=== PATIENT | female | born 1965 | race Caucasian/White ===

== ENCOUNTER 2016-07-17 16:46 | Emergency (ER) | payer MEDICAID ==
[~2016-07-17] VITALS: Ht 172.7 cm; Wt 65.0 kg
[2016-07-17 17:05] VITALS: BP 242/113; PULSE 99; RESP 18; TEMP 98.6; O2SAT 98
[2016-07-17] MEDS ORDERED: SODIUM CHLOR 0.9% 1000 ML INJ 1,000 ML IV SCH (17:11)
[2016-07-17 17:15] LABS: MEAN CORPUSCULAR HGB CONC 37.5 % (32.0-36.0)
[2016-07-17] MEDS ORDERED: METOCLOPRAMIDE HCL 10 MG/2 ML VIAL IV PUSH ONE (17:15)
[2016-07-17] MEDS ORDERED: SODIUM CHLORIDE 0.9% FLUSH 5 ML FLUSH IVF PRN (17:15)
[2016-07-17] MEDS ORDERED: BETH25TA2 PO (17:21)
[2016-07-17] MEDS ORDERED: REGL10TA5 PO (17:21)
[2016-07-17] MEDS ORDERED: CARA1TAB6 PO (17:21)
[2016-07-17 17:22] VITALS: RESP 20; O2SAT 96
--- NOTE | 2016-07-17 17:26 | PD ---
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 She also states she has been having diarrhea into her colostomy bag, has had to change the colostomy bag 3 times today. She denies any fevers. She currently is complaining of 8 out of 10 diffuse abdominal pain. She denies any fevers or other issues. She does not know any exacerbating or alleviating symptoms. Symptoms started yesterday. She has had similar symptoms in the past. Modifying Factors: None Associated Signs & Symptoms: Nausea, vomiting, diarrhea, abdominal pain Risk Factors: Gastroparesis history PFSH Past Medical History Diabetes: Yes Patient Takes Glucophage: No Gastrointestinal Disorders: Yes (GASTROPORESIS) Hypertension: Yes Neurologic: Yes (NEUROPATHY) ?: Not Menopausal: Yes Past Surgical History Section: Yes (X3) Other Surgery: Yes (COLOSTOMY, RT HIP TUMOR REMOVED) Social History Alcohol Use: No Tobacco Use: Yes (1PPD) Substance Use: No Allergies-Medications (Allergen,Severity, Reaction): Coded Allergies: Robaxin (Verified Allergy, Unknown, 07/17/16) Reported Meds & Prescriptions Reported Meds & Active Scripts Active Reported Reglan (Metoclopramide HCl) 10 Mg Tab 10 Mg PO QID Carafate (Sucralfate) 1 Gm Tab 1 Gm PO QID On empty stomach Bethanechol 25 Mg Tab 25 Mg PO DAILYAC Review of Systems Except as stated in HPI: all other systems reviewed are Neg Physical Exam Narrative GENERAL: Patient is a little age white female who is well-developed, awake, alert, oriented 3, in moderate distress, vomiting in the ER, tearful. SKIN: Warm and dry. HEAD: Atraumatic. Normocephalic. EYES: Pupils equal and round. No scleral icterus. No injection or drainage. ENT: No nasal bleeding or discharge. Mucous membranes pink and moist. NECK: Trachea midline. No JVD. CARDIOVASCULAR: Regular rate and rhythm. No murmur appreciated. RESPIRATORY: No accessory muscle use. Clear to auscultation. Breath sounds equal bilaterally. GASTROINTESTINAL: Abdomen soft, diffusely tender without guarding or rebound, nondistended. Colostomy intact with dark greenish bowel movement. Hepatic and splenic margins not palpable. MUSCULOSKELETAL: No obvious deformities. No clubbing. No cyanosis. No edema. NEUROLOGICAL: Awake and alert. No obvious cranial nerve deficits. Motor grossly within normal limits. Normal speech. PSYCHIATRIC: Appropriate mood and affect; insight and judgment normal. Data Data Last Documented VS Vital Signs Date Time Temp Pulse Resp B/P Pulse Ox O2 Delivery O2 Flow Rate FiO2 07/17/16 19:24 94 22 215/139 100 Room Air 07/17/16 17:05 98.6 Orders Complete Blood Count With Diff (07/17/16 17:11) Comprehensive Metabolic Panel (07/17/16 17:11) Lipase (07/17/16 17:11) Abdomen, Flat & Upright (07/17/16 ) Iv Access Insert/Monitor (07/17/16 17:11) Ecg Monitoring (07/17/16 17:11) Oximetry (07/17/16 17:11) Sodium Chlor 0.9% 1000 Ml Inj (Ns 1000 M (07/17/16 17:11) Sodium Chloride 0.9% Flush (Ns Flush) (07/17/16 17:15) Metoclopramide Inj (Reglan Inj) (07/17/16 17:15) Ct Abd/Pel W/O Iv Contrast (07/17/16 18:54) Hydromorphone Pf Inj (Dilaudid Pf Inj) (07/17/16 19:00) Labs Laboratory Tests Test 07/17/16 17:40 White Blood Count 15.0 TH/MM3 Red Blood Count 4.53 MIL/MM3 Hemoglobin 14.0 GM/DL Hematocrit 37.4 % Mean Corpuscular Volume 82.6 FL Mean Corpuscular Hemoglobin 31.0 PG Mean Corpuscular Hemoglobin 37.5 % Concent Red Cell Distribution Width 13.9 % Platelet Count 413 TH/MM3 Mean Platelet Volume 7.4 FL Neutrophils (%) (Auto) 81.7 % Lymphocytes (%) (Auto) 14.6 % Monocytes (%) (Auto) 3.0 % Eosinophils (%) (Auto) 0.1 % Basophils (%) (Auto) 0.6 % Neutrophils # (Auto) 12.3 TH/MM3 Lymphocytes # (Auto) 2.2 TH/MM3 Monocytes # (Auto) 0.5 TH/MM3 Eosinophils # (Auto) 0.0 TH/MM3 Basophils # (Auto) 0.1 TH/MM3 CBC Comment AUTO DIFF Differential Comment AUTO DIFF CONFIRMED Platelet Estimate HIGH Platelet Morphology Comment NORMAL Acanthocytes OCC Sodium Level 134 MEQ/L Potassium Level 3.6 MEQ/L Chloride Level 93 MEQ/L Carbon Dioxide Level 30.4 MEQ/L Anion Gap 11 MEQ/L Blood Urea Nitrogen 41 MG/DL Creatinine 1.85 MG/DL Estimat Glomerular Filtration 29 ML/MIN Rate Random Glucose 262 MG/DL Calcium Level 9.0 MG/DL Total Bilirubin 0.3 MG/DL Aspartate Amino Transf 14 U/L (AST/SGOT) Alanine Aminotransferase 16 U/L (ALT/SGPT) Alkaline Phosphatase 72 U/L Total Protein 7.1 GM/DL Albumin 3.1 GM/DL Lipase 277 U/L [facility] Medical Decision Making Medical Screen Exam Complete: Yes Emergency Medical Condition: Yes Medical Record Reviewed: Yes Interpretation(s) Laboratory Tests Test 07/17/16 17:40 White Blood Count 15.0 TH/MM3 (4.0-11.0) Mean Corpuscular Hemoglobin 37.5 % Concent (32.0-36.0) Neutrophils (%) (Auto) 81.7 % (16.0-70.0) Neutrophils # (Auto) 12.3 TH/MM3 (1.8-7.7) Sodium Level 134 MEQ/L (136-145) Chloride Level 93 MEQ/L (98-107) Blood Urea Nitrogen 41 MG/DL (7-18) Creatinine 1.85 MG/DL (0.50-1.00) Estimat Glomerular Filtration 29 ML/MIN (>89) Rate Random Glucose 262 MG/DL (74-106) Aspartate Amino Transf 14 U/L (15-37) (AST/SGOT) Albumin 3.1 GM/DL (3.4-5.0) Differential Diagnosis Nausea, vomiting, diarrhea, abdominal paingastroparesis versus obstruction versus dehydration versus metabolic issues versus gastroenteritis Narrative Course X-ray initially did not reveal any signs of significant obstruction. Patient is vomiting multiple times in the ER and was given Reglan. Dilaudid was later given for ongoing discomfort. Lab work returns showing significant leukocytosis and elevated BUN/creatinine. I suspect underlying dehydration. At this point, CAT scan was also ordered to rule out acute intra-abdominal processes. Physician Communication Physician Communication Case is signed out to Dr. Mitchell at 7 PM awaiting workup and CAT scan. Disposition based on reevaluation. Diagnosis Primary Impression: UNSPECIFIED ABDOMINAL PAIN Additional Impression: Vomiting Berna Franklin MD Jul 17, 2016 17:26
--- NOTE | 2016-07-17 18:22 | RADRPT ---
EXAM DATE/TIME: 07/17/2016 18:13 [facility] COMPARISON: No previous studies available for comparison. INDICATIONS : Abdominal pain and vomiting. MEDICAL HISTORY : None. SURGICAL HISTORY : Colostomy. ENCOUNTER: Initial ACUITY: 4 - 6 days PAIN SCORE: 5/10 LOCATION: Bilateral abdomen. FINDINGS: There is a left mid abdominal colostomy. Moderate stool seen upstream. No small bowel distention. No evidence of free air. CONCLUSION: Nonobstructive pattern. No free air. Moderate stool in the remaining colon. Lenard Guillory MD on July 17, 2016 at 18:19 Board Certified Radiologist. This report was verified electronically.
[2016-07-17 18:29] LABS: AUTOMATED NEUTROPHIL # 12.3 TH/MM3 (1.8-7.7); BASOPHIL # 0.1 TH/MM3 (0-0.2); BASOPHIL % 0.6 % (0.0-2.0); EOSINOPHIL % 0.1 % (0.0-4.0); HEMATOCRIT 37.4 % (35.0-46.0); LYMPH % 14.6 % (9.0-44.0); LYMPHOCYTE # 2.2 TH/MM3 (1.0-4.8); MEAN CELL VOLUME 82.6 FL (80.0-100.0); NEUT % 81.7 % (16.0-70.0); PLATELET COUNT 413 TH/MM3 (150-450); RED BLOOD COUNT 4.53 MIL/MM3 (4.00-5.30); RED CELL DISTRIBUTION WIDTH 13.9 % (11.6-17.2)
[2016-07-17 18:31] LABS: HEMO FLAGS AUTO DIFF
[2016-07-17 18:52] LABS: ALT (GPT) 16 U/L (10-53); ANION GAP 11 MEQ/L (5-15); AST (GOT) 14 U/L (15-37); BICARBONATE 30.4 MEQ/L (21.0-32.0); BLOOD UREA NITROGEN 41 MG/DL (7-18); CHLORIDE 93 MEQ/L (98-107); GLOMERULAR FILTRATION RATE 29 ML/MIN (>89); POTASSIUM 3.6 MEQ/L (3.5-5.1); SODIUM (NA) 134 MEQ/L (136-145)
[2016-07-17 18:54] LABS: ALKALINE PHOSPHATASE 72 U/L (45-117); TOTAL BILIRUBIN ADULT 0.3 MG/DL (0.2-1.0)
[2016-07-17 18:58] LABS: ACANTHOCYTES OCC (NORMAL); PLATELET ESTIMATE SMEAR HIGH (NORMAL); PLATELET MORPHOLOGY NORMAL (NORMAL); SCAN/DIFF AUTO DIFF CONFIRMED
[2016-07-17] MEDS ORDERED: HYDROmorphone HCL PF 1 MG/ML VIAL IV PUSH ONE ×2 (19:00→21:45)
[2016-07-17 19:24] VITALS: BP 215/139; PULSE 94; RESP 22; O2SAT 100
[2016-07-17 20:20] VITALS: BP 104/58; PULSE 96; RESP 16; O2SAT 95
[2016-07-17] MEDS ORDERED: SODIUM CHLOR 0.9% 1000 ML INJ 1,000 ML IV ONE (20:30)
--- NOTE | 2016-07-17 20:31 | RADRPT ---
EXAM DATE/TIME: 07/17/2016 20:16 [facility] COMPARISON: ABDOMEN FLAT & UPRIGHT, July 17, 2016, 18:13. INDICATIONS : Vomiting for two days. ORAL CONTRAST: No oral contrast ingested. RADIATION DOSE: 5.05 CTDIvol (mGy) MEDICAL HISTORY : Hypertension. Gastroparesis. diabetes SURGICAL HISTORY : section. Colostomy. ENCOUNTER: Initial ACUITY: 1 day PAIN SCALE: 0/10 LOCATION: Bilateral abdomen TECHNIQUE: Volumetric scanning of the abdomen and pelvis was performed. Using automated exposure control and ad justment of the mA and/or kV according to patient size, radiation dose was kept as low as reasonably achievable to obtain optimal diagnostic quality images. FINDINGS: LOWER LUNGS: The visualized lower lungs are clear. LIVER: Homogeneous density without lesion. There is no dilation of the biliary tree. No calcified gallston es. SPLEEN: Normal size without lesion. PANCREAS: Within normal limits. KIDNEYS: Normal in size and shape. There is no mass, stone, or hydronephrosis. ADRENAL GLANDS: Within normal limits. VASCULAR: There is no aortic aneurysm. BOWEL/MESENTERY: There is a diverting colostomy of the left mid abdomen at the level of the transverse colon. No obstr uction or acute inflammatory changes are seen at the gastrointestinal tract. CT appearance of the sma ll bowel within normal limits. Stomach is decompressed and has a normal CT appearance. ABDOMINAL WALL: Within normal limits. RETROPERITONEUM: There is no lymphadenopathy. BLADDER: No wall thickening or mass. REPRODUCTIVE: Within normal limits. INGUINAL: There is no lymphadenopathy or hernia. MUSCULOSKELETAL: Within normal limits for patient age. CONCLUSION: No obstruction, inflammatory changes or other acute abnormality demonstrated. Lenard Guillory MD on July 17, 2016 at 20:27 Board Certified Radiologist. This report was verified electronically.
--- NOTE | 2016-07-17 21:29 | PD ---
Data Data Last Documented VS Vital Signs Date Time Temp Pulse Resp B/P Pulse Ox O2 Delivery O2 Flow Rate FiO2 07/17/16 20:20 96 16 104/58 95 07/17/16 19:24 Room Air 07/17/16 17:05 98.6 Orders Complete Blood Count With Diff (07/17/16 17:11) Comprehensive Metabolic Panel (07/17/16 17:11) Lipase (07/17/16 17:11) Abdomen, Flat & Upright (07/17/16 ) Iv Access Insert/Monitor (07/17/16 17:11) Ecg Monitoring (07/17/16 17:11) Oximetry (07/17/16 17:11) Sodium Chlor 0.9% 1000 Ml Inj (Ns 1000 M (07/17/16 17:11) Sodium Chloride 0.9% Flush (Ns Flush) (07/17/16 17:15) Metoclopramide Inj (Reglan Inj) (07/17/16 17:15) Ct Abd/Pel W/O Iv Contrast (07/17/16 18:54) Hydromorphone Pf Inj (Dilaudid Pf Inj) (07/17/16 19:00) Sodium Chlor 0.9% 1000 Ml Inj (Ns 1000 M (07/17/16 20:30) Ondansetron Inj (Zofran Inj) (07/17/16 21:30) Al-Mag Hy-Si 40-40-4 Mg/Ml Liq (Mag-Al P (07/17/16 21:30) Lidocaine 2% Viscous (Xylocaine 2% Visco (07/17/16 21:30) Hydromorphone Pf Inj (Dilaudid Pf Inj) (07/17/16 21:45) Labs Laboratory Tests Test 07/17/16 17:40 White Blood Count 15.0 TH/MM3 Red Blood Count 4.53 MIL/MM3 Hemoglobin 14.0 GM/DL Hematocrit 37.4 % Mean Corpuscular Volume 82.6 FL Mean Corpuscular Hemoglobin 31.0 PG Mean Corpuscular Hemoglobin 37.5 % Concent Red Cell Distribution Width 13.9 % Platelet Count 413 TH/MM3 Mean Platelet Volume 7.4 FL Neutrophils (%) (Auto) 81.7 % Lymphocytes (%) (Auto) 14.6 % Monocytes (%) (Auto) 3.0 % Eosinophils (%) (Auto) 0.1 % Basophils (%) (Auto) 0.6 % Neutrophils # (Auto) 12.3 TH/MM3 Lymphocytes # (Auto) 2.2 TH/MM3 Monocytes # (Auto) 0.5 TH/MM3 Eosinophils # (Auto) 0.0 TH/MM3 Basophils # (Auto) 0.1 TH/MM3 CBC Comment AUTO DIFF Differential Comment AUTO DIFF CONFIRMED Platelet Estimate HIGH Platelet Morphology Comment NORMAL Acanthocytes OCC Sodium Level 134 MEQ/L Potassium Level 3.6 MEQ/L Chloride Level 93 MEQ/L Carbon Dioxide Level 30.4 MEQ/L Anion Gap 11 MEQ/L Blood Urea Nitrogen 41 MG/DL Creatinine 1.85 MG/DL Estimat Glomerular Filtration 29 ML/MIN Rate Random Glucose 262 MG/DL Calcium Level 9.0 MG/DL Total Bilirubin 0.3 MG/DL Aspartate Amino Transf 14 U/L (AST/SGOT) Alanine Aminotransferase 16 U/L (ALT/SGPT) Alkaline Phosphatase 72 U/L Total Protein 7.1 GM/DL Albumin 3.1 GM/DL Lipase 277 U/L [facility] Medical Record Reviewed: Yes Supervised Visit with ELISSA: No Narrative Course CBC & BMP Diagram 07/17/16 17:40 The LFTs are essentially normal The lipase is 277 Last 24 hours Impressions Abdomen X-Ray 07/17/16 0000 Signed Impressions: Service Date/Time: Tuesday, July 17, 2016 18:13 - CONCLUSION: Nonobstructive pattern. No free air. Moderate stool in the remaining colon. Lenard Guillory MD CT of the abdomen and pelvis shows no acute pathology. The patient was found sleeping comfortably upon reassessment at about 9:15. Lab work reveals dehydration. The patient has received 2 L of normal saline. She states the outside hospital prescribe her Reglan. She also reports some esophageal burning after the vomiting episodes. A second dose of antiemetics and a GI cocktail of be given here. The patient has a manager beauty that she follows with in [place]. An endoscopy and colonoscopy is scheduled for the next couple weeks. About one month from today she has follow-up with her manager beauty in [place]. Her will drive her home. Diagnosis Primary Impression: UNSPECIFIED ABDOMINAL PAIN Additional Impressions: Vomiting Qualified Code: R11.2 - Non-intractable vomiting with nausea, unspecified vomiting type Dehydration Referrals: Food Bever[employer] Manager 2 days Additional Instruction: You have a choice when it comes to health care, and we are glad that you chose [facility]. Hopefully, we have met your expectations on today's visit. You are welcome to return to [facility] at any time, as we are committed to meeting the health care needs of our community. Med/Other Pt SpecificInfo: No Change to Meds Scripts Hydrocodone-Acetaminophen (Lortab)5-325 Mg Tab1-2 Tab PO Q6H PRN (PAIN SCALE 6 TO 10) #12 TAB Ref 0 Prov:Bob Mitchell MD 07/17/16 Disposition: 01 DISCHARGE HOME Condition: Stable Bob Mitchell MD Jul 17, 2016 21:29
[2016-07-17] MEDS ORDERED: ONDANSETRON HCL 4 MG/2 ML VIAL IVP ONE (21:30)
[2016-07-17] MEDS ORDERED: LIDOCAINE VISCOUS 2% SOLN 15 ML UDC PO ONE (21:30)
[2016-07-17] MEDS ORDERED: ALUMINUM/MAGNESIUM/SIMETH 30 ML CUP PO ONE (21:30)
[2016-07-17] MEDS ORDERED: HYDR-3533 PO (21:35)
== END 2016-07-17 22:44 | disposition home or self-care (01) ==
LOC: NEPC 16:46
DX: R10.9 Unspecified abdominal pain (principal); R11.10 Vomiting, unspecified; E86.0 Dehydration
CPT/HCPCS: 74020; 74176; 80053; 83690; 85025; 96361; 96374; 96375; 96376; J1170; J2405; J2765; J7030

== ENCOUNTER 2016-07-18 19:56 | Inpatient (IN) | payer MEDICAID ==
[~2016-07-18] VITALS: Ht 167.6 cm; Wt 66.0 kg
[~2016-07-18 19:56] MED LIST: BETH25TA2 PO; CARA1TAB6 PO; HYDR-3533 PO; REGL10TA5 PO
[2016-07-18] MEDS ORDERED: SODIUM CHLOR 0.9% 1000 ML INJ 1,000 ML IV SCH (20:03)
[2016-07-18 20:06] VITALS: BP 234/112; PULSE 101; RESP 22; TEMP 98.5; O2SAT 99
--- NOTE | 2016-07-18 20:07 | PD ---
HPI Chief Complaint: nausea and vomiting Time Seen by Provider: 19:55 Travel History International Travel<30 days: No Contact w/Intl Traveler<30days: No Traveled to known affect area: No History of Present Illness HPI This is a 50-year-old female to history of colostomy, gastroparesis, diabetes, hearing loss, hypertension, presents for evaluation of nausea, vomiting, abdominal pain. She reports of the past 3 days she has had multiple episodes of emesis on daily basis unrelieved with the use of her prescribed prednisone and Zofran. She complains of constant aching epigastric abdominal pain. She also reports generalized chest tightness since yesterday. She reports that she has had similar symptoms in the past. Patient was seen here yesterday for the same complaints. She was given pain medicine and nausea medicine consult improved. She comes back in today with similar symptoms. She reports that she sees a ambulance mechanic in [place]. History is somewhat limited secondary to patient's condition at this time. PFSH Past Medical History Diabetes: Yes Gastrointestinal Disorders: Yes (GASTROPORESIS) Hypertension: Yes Neurologic: Yes (NEUROPATHY) Menopausal: Yes Past Surgical History Section: Yes (X3) Other Surgery: Yes (COLOSTOMY, RT HIP TUMOR REMOVED) Social History Alcohol Use: No Tobacco Use: Yes (1PPD) Substance Use: No Allergies-Medications (Allergen,Severity, Reaction): Coded Allergies: Robaxin (Verified Allergy, Unknown, 07/17/16) Reported Meds & Prescriptions Reported Meds & Active Scripts Active Lortab (Hydrocodone-Acetaminophen) 5-325 Mg Tab 1-2 Tab PO Q6H PRN Reported Reglan (Metoclopramide HCl) 10 Mg Tab 10 Mg PO QID Carafate (Sucralfate) 1 Gm Tab 1 Gm PO QID On empty stomach Bethanechol 25 Mg Tab 25 Mg PO DAILYAC Review of Systems Except as stated in HPI: all other systems reviewed are Neg Physical Exam Narrative GENERAL: This is a chronically ill-appearing female who is tearful, vomiting during initial examination. She is hypertensive. SKIN: Warm and dry. HEAD: Atraumatic. Normocephalic. EYES: Pupils equal and round. No scleral icterus. No injection or drainage. ENT: No nasal bleeding or discharge. Mucous membranes pink and moist. NECK: Trachea midline. No JVD. CARDIOVASCULAR: Regular rate and rhythm. No murmur appreciated. RESPIRATORY: No accessory muscle use. Clear to auscultation. Breath sounds equal bilaterally. GASTROINTESTINAL: Abdomen soft, epigastric tenderness to palpation without guarding. There is colostomy with some brown stool in the bag. MUSCULOSKELETAL: No obvious deformities. No edema. NEUROLOGICAL: Awake and alert. No obvious cranial nerve deficits. Motor grossly within normal limits. Normal speech. PSYCHIATRIC: Appropriate mood and affect; insight and judgment normal. Data Data Last Documented VS Vital Signs Date Time Temp Pulse Resp B/P Pulse Ox O2 Delivery O2 Flow Rate FiO2 07/18/16 20:59 18 07/18/16 20:59 69 188/85 100 07/18/16 20:06 98.5 Orders Complete Blood Count With Diff (07/18/16 20:03) Comprehensive Metabolic Panel (07/18/16 20:03) Lipase (07/18/16 20:03) Urinalysis - C+S If Indicated (07/18/16 20:03) Electrocardiogram (07/18/16 20:03) Chest, Single Ap (07/18/16 20:03) Ed Urine Pregnancytest Poc (07/18/16 20:03) Ckmb (Isoenzyme) Profile (07/18/16 20:03) Magnesium (Mg) (07/18/16 20:03) Troponin I (07/18/16 20:03) Morphine Inj (Morphine Inj) (07/18/16 20:15) Ondansetron Inj (Zofran Inj) (07/18/16 20:15) Sodium Chlor 0.9% 1000 Ml Inj (Ns 1000 M (07/18/16 20:03) Dicyclomine Inj (Bentyl Inj) (07/18/16 20:15) Labetalol Inj (Trandate Inj) (07/18/16 20:15) Pantoprazole Inj (Protonix Inj) (07/18/16 20:15) Admit Order (Ed Use Only) (07/18/16 21:48) Labs Laboratory Tests Test 07/18/16 07/18/16 20:10 20:50 White Blood Count 13.8 TH/MM3 Red Blood Count 4.84 MIL/MM3 Hemoglobin 14.2 GM/DL Hematocrit 40.0 % Mean Corpuscular Volume 82.7 FL Mean Corpuscular Hemoglobin 29.4 PG Mean Corpuscular Hemoglobin 35.5 % Concent Red Cell Distribution Width 13.9 % Platelet Count 405 TH/MM3 Mean Platelet Volume 7.3 FL Neutrophils (%) (Auto) 80.1 % Lymphocytes (%) (Auto) 15.6 % Monocytes (%) (Auto) 3.4 % Eosinophils (%) (Auto) 0.2 % Basophils (%) (Auto) 0.7 % Neutrophils # (Auto) 11.1 TH/MM3 Lymphocytes # (Auto) 2.2 TH/MM3 Monocytes # (Auto) 0.5 TH/MM3 Eosinophils # (Auto) 0.0 TH/MM3 Basophils # (Auto) 0.1 TH/MM3 CBC Comment DIFF FINAL Differential Comment Sodium Level 133 MEQ/L Potassium Level 4.0 MEQ/L Chloride Level 96 MEQ/L Carbon Dioxide Level 25.8 MEQ/L Anion Gap 11 MEQ/L Blood Urea Nitrogen 27 MG/DL Creatinine 1.38 MG/DL Estimat Glomerular Filtration 41 ML/MIN Rate Random Glucose 273 MG/DL Calcium Level 8.8 MG/DL Magnesium Level 1.6 MG/DL Total Bilirubin 0.5 MG/DL Aspartate Amino Transf 21 U/L (AST/SGOT) Alanine Aminotransferase 17 U/L (ALT/SGPT) Alkaline Phosphatase 71 U/L Total Creatine Kinase 60 U/L Troponin I LESS THAN 0.02 NG/ML Total Protein 6.9 GM/DL Albumin 2.9 GM/DL Lipase 237 U/L Urine Color LIGHT-YELLOW Urine Turbidity CLEAR Urine pH 7.5 Urine Specific [place] 1.008 Urine Protein 300 mg/dL Urine Glucose (UA) 1000 mg/dL Urine Ketones 10 mg/dL Urine Occult Blood SMALL Urine Nitrite NEG Urine Bilirubin NEG Urine Urobilinogen LESS THAN 2.0 MG/DL Urine Leukocyte Esterase NEG Urine RBC 11 /hpf Urine WBC 1 /hpf Urine Hyaline Casts 2 /lpf Urine Mucus FEW /lpf Microscopic Urinalysis Comment CULT NOT INDICATED MDM Medical Decision Making Medical Screen Exam Complete: Yes Emergency Medical Condition: Yes Medical Record Reviewed: Yes Interpretation(s) ekg nsr Differential Diagnosis Gastroparesis exacerbation, gastritis, pancreatitis, cholecystitis, AAA, dehydration, electrolyte abnormality, atypical acute coronary syndrome Narrative Course 50-year-old female with history of gastroparesis, diabetes, hypertension, colostomy presents for evaluation of days of nausea and vomiting unimproved with the use of her Zofran and Reglan. She endorses epigastric discomfort, chest tightness. The patient was seen for these symptoms yesterday. She had a normal CT of the abdomen and pelvis. She felt improved after the administration of fluids, Reglan and Dilaudid. Lab work did reveal renal insufficiency. Plan is for lab work, EKG, chest x-ray. The patient will be given IV fluids, nausea medicine pain medication as well as Protonix, Bentyl. She will be reassessed. The patient's lab work has been reviewed. Her kidney function is improved from yesterday but her BUN/creatinine are still somewhat elevated. Upon reexamination she continues to feel uncomfortable and have nausea. There is concern because this is the patient's second visit in 2 days with intractable nausea and vomiting despite the use of Zofran and Reglan at home. Therefore she will be admitted for observation. Diagnosis Primary Impression: Intractable nausea and vomiting Qualified Code: R11.2 - Intractable vomiting with nausea, unspecified vomiting type Additional Impressions: Renal insufficiency Abdominal pain, unspecified site Admitting Information Admitting Physician Requests: Observation Edenilson Suazo Jul 18, 2016 20:07
[2016-07-18] MEDS ORDERED: LABETALOL HCL 100 MG/20 ML VIAL IV PUSH ONE (20:15)
[2016-07-18] MEDS ORDERED: MORPHINE SULFATE 4 MG/ML INJ IV PUSH ONE (20:15)
[2016-07-18] MEDS ORDERED: PANTOPRAZOLE SODIUM 40 MG VIAL IVP ONE (20:15)
[2016-07-18] MEDS ORDERED: ONDANSETRON HCL 4 MG/2 ML VIAL IVP ONE (20:15)
[2016-07-18] MEDS ORDERED: DICYCLOMINE HCL 20 MG/2 ML VIAL IM ONE (20:15)
[2016-07-18 20:26] LABS: AUTOMATED NEUTROPHIL # 11.1 TH/MM3 (1.8-7.7); BASOPHIL # 0.1 TH/MM3 (0-0.2); BASOPHIL % 0.7 % (0.0-2.0); EOSINOPHIL % 0.2 % (0.0-4.0); HEMO FLAGS DIFF FINAL; LYMPH % 15.6 % (9.0-44.0); LYMPHOCYTE # 2.2 TH/MM3 (1.0-4.8); MEAN CELL VOLUME 82.7 FL (80.0-100.0); MEAN CORPUSCULAR HEMOGLOBIN 29.4 PG (27.0-34.0); MEAN CORPUSCULAR HGB CONC 35.5 % (32.0-36.0); MONO % 3.4 % (0.0-8.0); NEUT % 80.1 % (16.0-70.0); PLATELET COUNT 405 TH/MM3 (150-450); RED BLOOD COUNT 4.84 MIL/MM3 (4.00-5.30); RED CELL DISTRIBUTION WIDTH 13.9 % (11.6-17.2); WHITE BLOOD COUNT 13.8 TH/MM3 (4.0-11.0)
[2016-07-18 20:47] LABS: ALKALINE PHOSPHATASE 71 U/L (45-117); ALT (GPT) 17 U/L (10-53); ANION GAP 11 MEQ/L (5-15); AST (GOT) 21 U/L (15-37); BICARBONATE 25.8 MEQ/L (21.0-32.0); BLOOD UREA NITROGEN 27 MG/DL (7-18); CHLORIDE 96 MEQ/L (98-107); CREATINE KINASE 60 U/L (26-192); GLOMERULAR FILTRATION RATE 41 ML/MIN (>89); MAGNESIUM 1.6 MG/DL (1.5-2.5); SODIUM (NA) 133 MEQ/L (136-145); TOTAL BILIRUBIN ADULT 0.5 MG/DL (0.2-1.0)
[2016-07-18 20:59] VITALS: BP 188/85; PULSE 69; RESP 16; O2SAT 100
--- NOTE | 2016-07-18 21:00 | RADRPT ---
EXAM DATE/TIME: 07/18/2016 20:36 [facility] COMPARISON: No previous studies available for comparison. INDICATIONS : Chest pain. MEDICAL HISTORY : None. SURGICAL HISTORY : None. ENCOUNTER: Initial ACUITY: 1 week PAIN SCORE: 4/10 LOCATION: Bilateral chest FINDINGS: A single view of the chest demonstrates the lungs to be symmetrically aerated without evidence of mas s, infiltrate or effusion. The cardiomediastinal contours are unremarkable. Osseous structures are intact.CONCLUSION: No acute disease. Dusty Buckner MD on July 18, 2016 at 20:55 Board Certified Radiologist. This report was verified electronically.
--- NOTE | 2016-07-18 21:06 | PD ---
Data Data Last Documented VS Vital Signs Date Time Temp Pulse Resp B/P Pulse Ox O2 Delivery O2 Flow Rate FiO2 07/18/16 20:59 18 07/18/16 20:59 69 188/85 100 07/18/16 20:06 98.5 Orders Complete Blood Count With Diff (07/18/16 20:03) Comprehensive Metabolic Panel (07/18/16 20:03) Lipase (07/18/16 20:03) Urinalysis - C+S If Indicated (07/18/16 20:03) Electrocardiogram (07/18/16 20:03) Chest, Single Ap (07/18/16 20:03) Ed Urine Pregnancytest Poc (07/18/16 20:03) Ckmb (Isoenzyme) Profile (07/18/16 20:03) Magnesium (Mg) (07/18/16 20:03) Troponin I (07/18/16 20:03) Morphine Inj (Morphine Inj) (07/18/16 20:15) Ondansetron Inj (Zofran Inj) (07/18/16 20:15) Sodium Chlor 0.9% 1000 Ml Inj (Ns 1000 M (07/18/16 20:03) Dicyclomine Inj (Bentyl Inj) (07/18/16 20:15) Labetalol Inj (Trandate Inj) (07/18/16 20:15) Pantoprazole Inj (Protonix Inj) (07/18/16 20:15) Labs Laboratory Tests Test 07/18/16 20:10 White Blood Count 13.8 TH/MM3 Red Blood Count 4.84 MIL/MM3 Hemoglobin 14.2 GM/DL Hematocrit 40.0 % Mean Corpuscular Volume 82.7 FL Mean Corpuscular Hemoglobin 29.4 PG Mean Corpuscular Hemoglobin 35.5 % Concent Red Cell Distribution Width 13.9 % Platelet Count 405 TH/MM3 Mean Platelet Volume 7.3 FL Neutrophils (%) (Auto) 80.1 % Lymphocytes (%) (Auto) 15.6 % Monocytes (%) (Auto) 3.4 % Eosinophils (%) (Auto) 0.2 % Basophils (%) (Auto) 0.7 % Neutrophils # (Auto) 11.1 TH/MM3 Lymphocytes # (Auto) 2.2 TH/MM3 Monocytes # (Auto) 0.5 TH/MM3 Eosinophils # (Auto) 0.0 TH/MM3 Basophils # (Auto) 0.1 TH/MM3 CBC Comment DIFF FINAL Differential Comment Sodium Level 133 MEQ/L Potassium Level 4.0 MEQ/L Chloride Level 96 MEQ/L Carbon Dioxide Level 25.8 MEQ/L Anion Gap 11 MEQ/L Blood Urea Nitrogen 27 MG/DL Creatinine 1.38 MG/DL Estimat Glomerular Filtration 41 ML/MIN Rate Random Glucose 273 MG/DL Calcium Level 8.8 MG/DL Magnesium Level 1.6 MG/DL Total Bilirubin 0.5 MG/DL Aspartate Amino Transf 21 U/L (AST/SGOT) Alanine Aminotransferase 17 U/L (ALT/SGPT) Alkaline Phosphatase 71 U/L Total Creatine Kinase 60 U/L Troponin I LESS THAN 0.02 NG/ML Total Protein 6.9 GM/DL Albumin 2.9 GM/DL Lipase 237 U/L MDM Supervised Visit with ELISSA: Yes Narrative Course The history, exam, and medical decision-making in the associated midlevel provider note were completed with my assistance. I reviewed and agree with the findings presented. I attest that I had a [id number] encounter with the patient on the same day, and personally performed and documented my assessment and findings in the medical record. *My assessment and Findings: This is a 50-year-old female who has a history of gastroparesis and colostomy who presents to the emergency department with nausea and vomiting for 3 days associated with epigastric abdominal pain. She is a poor historian and history is limited. She was here yesterday in the emergency department and had labs which demonstrated acute kidney injury and a CT abdomen and pelvis which was reassuring. Patient continues to vomit despite outpatient therapy with antiemetics. She has objective evidence of dehydration on blood work although it is improved from yesterday. I think patient would benefit from observation for symptomatic management. Diagnosis Primary Impression: Intractable nausea and vomiting Qualified Code: R11.2 - Intractable vomiting with nausea, unspecified vomiting type Additional Impressions: Renal insufficiency Abdominal pain, unspecified site Zuleima Barney MD Jul 18, 2016 21:06
[2016-07-18 21:24] LABS: BLOOD, URINE SMALL (NEG); COMMENT (UR) CULT NOT INDICATED; CULTURE IF INDICATED CULT NOT INDICATED; GLUCOSE,URINE 1000 mg/dL (NEG); HYALINE CAST, URINE 2 /lpf (RARE); KETONE, URINE 10 mg/dL (NEG); MUCUS URINE FEW /lpf (OCC); NITRITE,URINE NEG (NEG); PH, URINE 7.5 (5.0-8.5); URINE COLOR LIGHT-YELLOW (YELLW/STRAW)
[2016-07-18 21:56] VITALS: BP 210/97; PULSE 83; RESP 18; O2SAT 100
[2016-07-18] MEDS ORDERED: PROCHLORPERAZINE 25 MG SUPP PR PRN (22:15)
[2016-07-18] MEDS ORDERED: NALOXONE HCL 0.4 MG/ML AMP IV PRN (22:15)
[2016-07-18] MEDS ORDERED: MAGNESIUM HYDROXIDE SUSP 30 ML CUP PO PRN (22:15)
[2016-07-18] MEDS ORDERED: ACETAMINOPHEN 325 MG TAB PO PRN (22:15)
[2016-07-18] MEDS ORDERED: ENALAPRILAT 2.5 MG/2 ML VIAL IV PUSH ONE (22:30)
[2016-07-18 23:20] VITALS: BP 207/96; PULSE 83; RESP 18; O2SAT 100
[2016-07-18] MEDS: ONDANSETRON HCL 4 MG/2 ML VIAL IVP PRN (23:26)
[2016-07-18] MEDS: SODIUM CHLOR 0.9% 1000 ML INJ 1,000 ML IV SCH (23:26)
[2016-07-18 23:39] VITALS: BP 207/92; PULSE 93; RESP 18; O2SAT 98
[2016-07-19] VITALS (15 sets, daily range): BP systolic 99–216; BP diastolic 56–105; PULSE 66–101; RESP 14–23; TEMP 98.2–98.7; O2SAT 95–100
[2016-07-19] MEDS: cloNIDine HCL 0.1 MG TAB PO PRN (00:40)
[2016-07-19] MEDS ORDERED: BUTA1TAB30 PO ×2 (01:10)
[2016-07-19] MEDS ORDERED: BETH25TA2 PO ×2 (01:10)
[2016-07-19] MEDS ORDERED: SUCR1TAB PO ×2 (01:10)
[2016-07-19] MEDS ORDERED: LISI-515 PO ×2 (01:10)
[2016-07-19] MEDS ORDERED: ONDA1TAB17 PO ×2 (01:10)
[2016-07-19] MEDS ORDERED: METO10TA PO ×2 (01:10)
[2016-07-19] MEDS ORDERED: TAMS0.4C4 PO ×2 (01:10)
[2016-07-19] MEDS ORDERED: niCARdipine INJ 25 MG in SODIUM CHLOR 0.9% 250 ML INJ 250 ML IV SCH (01:15)
--- NOTE | 2016-07-19 03:26 | HHI.HP ---
H[facility] Primary [facility] Physician No Primary Care Physician Admission Diagnosis intractable nausea and vomiting, renal insufficiency, abdominal pain Diagnoses: (1) Abdominal pain, unspecified site (2) Intractable nausea and vomiting (3) Hypertensive urgency (4) Dehydration (5) Renal insufficiency (6) Type 2 diabetes mellitus Chief Complaint: Severe nausea and vomiting Travel History International Travel<30 Days: No Contact w/Intl Traveler <30 Da: No Traveled to Known Affected Are: No History of Present Illness Ms. Reed is a 50-year-old female with past medical history of neuropathy, type 2 diabetes mellitus, hypertension, and gastroparesis who presented to the emergency room on 07/18/2016 for evaluation of nausea, vomiting, and diarrhea. The patient also has a colostomy to following partial colectomy though she did not go into great detail regarding why this was needed. The patient is seen in the emergency room. She reports that she has been experiencing severe nausea/vomiting, and diarrhea for about 3 - 4 days accompanied by abdominal pain. While in the emergency room, the patient had hypertensive urgency with initial blood pressure of 234/112. Blood pressure did not respond to multiple intravenous antihypertensives or by mouth clonidine and subsequently a Cardene drip was initiated with rapid response progressing to hypotension. She is going to be admitted to the intensive care unit for closer monitoring of blood pressure. Review of Systems Except as stated in HPI: all other systems reviewed are Neg Past Family Social History Past Medical History diabetes gastroparesis neuropathy . 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 Reported Medications Reported Meds & Active Scripts Active Reported Metoclopramide (Metoclopramide HCl) 10 Mg Tab 10 Mg PO QID Butalbital-Acetaminophen 50-325 Mg Tab 1-2 Tab PO Q4HR PRN Do not exceed 6 tablets per day. Lisinopril 20 Mg Tab 20 Mg PO DAILY Ondansetron (Ondansetron HCl) 8 Mg Tab 8 Mg PO TID Bethanechol 25 Mg Tab 25 Mg PO QID Tamsulosin (Tamsulosin HCl) 0.4 Mg Cap 0.4 Mg PO HS Sucralfate 1 Gm Tab 1 Gm PO QID on empty stomach Allergies: Coded Allergies: Robaxin (Verified Allergy, Unknown, 07/17/16) Active Ordered Medications Current Medications Morphine Sulfate (Morphine Inj) 4 mg ONCE ONCE IV PUSH Last administered on 20:30; Start 07/18/16 at 20:15; Stop 07/18/16 at 20:16; Status DC Ondansetron HCl 4 mg 4 mg ONCE ONCE IVP Last administered on 07/18/16 20:30; Start 07/18/16 at 20:15; Stop 07/18/16 at 20:16; Status DC Sodium Chloride (NS 1000 ml Inj) 1,000 ml @ 1,000 mls/hr Q1H IV Last administered on 07/18/16 20:27; Start 07/18/16 at 20:03; Stop 07/18/16 at 21:02 ; Status DC Dicyclomine HCl (Bentyl Inj) 20 mg ONCE ONCE IM Last administered on 20:30; Start 07/18/16 at 20:15; Stop 07/18/16 at 20:16; Status DC Labetalol HCl (Trandate Inj) 20 mg ONCE ONCE IV PUSH Last administered on 07/18 20:28; Start 07/18/16 at 20:15; Stop 07/18/16 at 20:16; Status DC Pantoprazole Sodium 40 mg 40 mg ONCE ONCE IVP Last administered on 07/18/16 20:29; Start 07/18/16 at 20:15; Stop 07/18/16 at 20:16; Status DC Sodium Chloride (NS 1000 ml Inj) 1,000 ml @ 100 mls/hr Q10H IV Last administered on 07/18/16 23:26; Start 07/18/16 at 22:09 Acetaminophen (Tylenol) 650 mg Q4H PRN PO TEMP > 100.4; Start 07/18/16 at 22:15 Ondansetron HCl (Zofran Inj) 4 mg Q6H PRN IVP NAUSEA OR VOMITING Last administered on 07/18/16 23:26; Start 07/18/16 at 22:15 Prochlorperazine (Compazine Supp) 25 mg Q12H PRN [place] NAUSEA OR VOMITING; Start 07/18/16 at 22:15 Magnesium Hydroxide (Milk Of Magnesia Liq) 30 ml Q12H PRN PO CONSTIPATION; Start 07/18/16 at 22:15 Naloxone HCl (Narcan Inj) 0.4 mg UNSCH PRN IV SEE LABEL COMMENTS; Start at 22:15 Enalaprilat (Vasotec Inj) 2.5 mg ONCE ONCE IV PUSH Last administered on 23:26; Start 07/18/16 at 22:30; Stop 07/18/16 at 22:31; Status DC Clonidine 0.1 mg 0.1 mg Q6H PRN PO SBP> OR = 180, DBP> OR = 100 Last administered on 07/19/16 00:40; Start 07/19/16 at 00:30 Nicardipine HCl/ Sodium Chloride (Cardene Inj/NS 250 ml Inj) 260 ml @ 0 mls/hr TITRATE IV Last administered on 07/19/16 01:32; Start 07/19/16 at 01:15 . Family History Hypertension Breast Cancer Bladder Cancer Colon Cancer Liver Cancer Diabetes mellitus CVA Emphysema . Social History Tobacco: smokes 1 PPD Alcohol: denies Illicit drugs: none . Physical Exam Vital Signs Vital Signs Date Time Temp Pulse Resp B/P Pulse Ox O2 Delivery O2 Flow Rate FiO2 07/19/16 02:24 80 18 109/56 97 07/19/16 02:10 99/56 07/19/16 01:30 124/64 07/19/16 00:43 84 16 216/105 98 07/18/16 23:39 93 18 207/92 98 07/18/16 23:20 83 18 207/96 100 07/18/16 21:56 83 18 210/97 100 07/18/16 20:59 18 07/18/16 20:59 69 16 188/85 100 07/18/16 20:06 98.5 101 22 234/112 99 Physical Exam GENERAL: This is a well-nourished, well-developed patient, in no apparent distress. SKIN: No rashes, ecchymoses or lesions. Cool and dry. HEAD: Atraumatic. Normocephalic. EYES: No scleral icterus. No injection or drainage. ENT: Nose without bleeding, purulent drainage. NECK: Trachea midline. No JVD or lymphadenopathy. CARDIOVASCULAR: Regular rate and rhythm without murmurs, gallops, or rubs. RESPIRATORY: Clear to auscultation. Breath sounds equal bilaterally. No wheezes , rales, or rhonchi. GASTROINTESTINAL: Abdomen: Normally active bowel sounds; abdomen diffusely tender with no rebound and no guarding noted. Abdomen is soft and nondistended. Colostomy to left lower quadrant with dark stool noted in bag. MUSCULOSKELETAL: Extremities without clubbing, cyanosis, or edema. No calf tenderness. NEUROLOGICAL: Awake and alert. Motor and sensory grossly within normal limits. Normal speech. . Laboratory Laboratory Tests Test 07/18/16 07/18/16 20:10 20:50 White Blood Count 13.8 Red Blood Count 4.84 Hemoglobin 14.2 Hematocrit 40.0 Mean Corpuscular Volume 82.7 Mean Corpuscular Hemoglobin 29.4 Mean Corpuscular Hemoglobin 35.5 Concent Red Cell Distribution Width 13.9 Platelet Count 405 Mean Platelet Volume 7.3 Neutrophils (%) (Auto) 80.1 Lymphocytes (%) (Auto) 15.6 Monocytes (%) (Auto) 3.4 Eosinophils (%) (Auto) 0.2 Basophils (%) (Auto) 0.7 Neutrophils # (Auto) 11.1 Lymphocytes # (Auto) 2.2 Monocytes # (Auto) 0.5 Eosinophils # (Auto) 0.0 Basophils # (Auto) 0.1 CBC Comment DIFF FINAL Differential Comment Sodium Level 133 Potassium Level 4.0 Chloride Level 96 Carbon Dioxide Level 25.8 Anion Gap 11 Blood Urea Nitrogen 27 Creatinine 1.38 Estimat Glomerular Filtration 41 Rate Random Glucose 273 Calcium Level 8.8 Magnesium Level 1.6 Total Bilirubin 0.5 Aspartate Amino Transf 21 (AST/SGOT) Alanine Aminotransferase 17 (ALT/SGPT) Alkaline Phosphatase 71 Total Creatine Kinase 60 Troponin I LESS THAN 0.02 Total Protein 6.9 Albumin 2.9 Lipase 237 Urine Color LIGHT-YELLOW Urine Turbidity CLEAR Urine pH 7.5 Urine Specific [place] 1.008 Urine Protein 300 Urine Glucose (UA) 1000 Urine Ketones 10 Urine Occult Blood SMALL Urine Nitrite NEG Urine Bilirubin NEG Urine Urobilinogen LESS THAN 2.0 Urine Leukocyte Esterase NEG Urine RBC 11 Urine WBC 1 Urine Hyaline Casts 2 Urine Mucus FEW Microscopic Urinalysis Comment CULT NOT INDICATED Result Diagram: 07/18/16200907/18/162009 Imaging CXR - no acute disease . Assessment and Plan Problem List: (1) Abdominal pain, unspecified site ICD Code: R10.9 Status: Acute (2) Intractable nausea and vomiting ICD Code: R11.2 Status: Acute (3) Hypertensive urgency ICD Code: I16.0 Status: Acute (4) Renal insufficiency ICD Code: N28.9 Status: Acute (5) Dehydration ICD Code: E86.0 Status: Acute (6) Type 2 diabetes mellitus ICD Code: E11.9 Status: Chronic Assessment and Plan Ms. Reed is a 50-year-old female with past medical history of neuropathy, type 2 diabetes mellitus, hypertension, and gastroparesis who presented to the emergency room on 07/18/2016 for evaluation of nausea, vomiting, and diarrhea. The patient also has a colostomy to following partial colectomy though she did not go into great detail regarding why this was needed. Abdominal pain with intractable nausea and vomiting - Stool in colostomy bag noted to be very dark during examination - Hemoccult stool - Clear liquid diet - Consult gastroenterology - Morphine 2 mg IV every 3 hours as needed for pain Hypertensive urgency - While in the emergency room, the patient had hypertensive urgency with initial blood pressure of 234/112. Blood pressure did not respond to multiple intravenous antihypertensives or by mouth clonidine and subsequently a Cardene drip was initiated with rapid response progressing to hypotension. - Cardene drip d/c'd - She is admitted to the intensive care unit for closer monitoring of blood pressure. Renal insufficiency most likely related to dehydration - Normal saline at 100 cc per hour - Recheck BMP in a.m. and follow trends in renal indices - Avoid nephrotoxins Type 2 diabetes mellitus - Accu-Cheks before meals and at bedtime with low-dose sliding scale NovoLog coverage - Hypoglycemia protocol ordered - Follow trends and blood glucose levels and adjust treatment as needed DVT prophylaxis - SCDs Written by Eleni Brizuela, acting as scribe for Dr. Cabrera on 07/19/16 at 03: 25. All or portions of this note were transcribed by FABRICE Lo. I, Dr. Yimi Cabrera personally performed the history, physical exam, and medical decision making; and confirmed the accuracy of the information in the transcribed note. Authenticated by Dr. Yimi Cabrera on 07/19/16 at 06:31. Discussed Condition With ER physician, RN, and patient . Physician Certification 2 Midnight Certification Type: Admission for Inpatient Services Order for Inpatient Services The services are ordered in accordance with Medicare regulations or non- Medicare payer requirements, as applicable. In the case of services not specified as inpatient-only, they are appropriately provided as inpatient services in accordance with the 2-midnight benchmark. Estimated LOS (days): 3 days is the estimated time the patient will need to remain in the hospital, assuming treatment plan goals are met and no additional complications. Post-Hospital Plan: Not yet determined Problem Qualifiers (1) Intractable nausea and vomiting: Qualified Code: R11.2 - Intractable vomiting with nausea, unspecified vomiting type Eleni Brizuela Jul 19, 2016 03:26 Yimi Cabrera MD Jul 19, 2016 06:31
[2016-07-19] MEDS ORDERED: PROCHLORPERAZINE MALEATE 5 MG TAB PO PRN (03:30)
[2016-07-19 04:03] LABS: AUTOMATED NEUTROPHIL # 11.2 TH/MM3 (1.8-7.7); BASOPHIL # 0.1 TH/MM3 (0-0.2); BASOPHIL % 0.8 % (0.0-2.0); EOSINOPHIL % 0.1 % (0.0-4.0); HEMATOCRIT 35.6 % (35.0-46.0); HEMO FLAGS DIFF FINAL; LYMPH % 11.8 % (9.0-44.0); LYMPHOCYTE # 1.6 TH/MM3 (1.0-4.8); MEAN CELL VOLUME 82.3 FL (80.0-100.0); MEAN CORPUSCULAR HEMOGLOBIN 29.3 PG (27.0-34.0); MEAN CORPUSCULAR HGB CONC 35.6 % (32.0-36.0); MONO % 2.7 % (0.0-8.0); NEUT % 84.6 % (16.0-70.0); PLATELET COUNT 313 TH/MM3 (150-450); RED BLOOD COUNT 4.33 MIL/MM3 (4.00-5.30); RED CELL DISTRIBUTION WIDTH 13.6 % (11.6-17.2); WHITE BLOOD COUNT 13.2 TH/MM3 (4.0-11.0)
[2016-07-19 04:17] LABS: BICARBONATE 24.2 MEQ/L (21.0-32.0); POTASSIUM 3.8 MEQ/L (3.5-5.1)
[2016-07-19] MEDS ORDERED: CHLORHEXIDINE GLUCONATE 2 % 1 PACK (2 CLOTHS)(extra cloths) TOP PRN (04:30)
[2016-07-19] MEDS ORDERED: GLUCAGON 1 MG/ML VIAL OTHER PRN (05:15)
[2016-07-19] MEDS ORDERED: DEXTROSE 50% IN WATER 50 ML VIAL(D50) IV PUSH PRN (05:15)
[2016-07-19] MEDS: INSULIN ASPART SUPPLEMENTAL SCALE SQ SCH ×4 (07:00→20:20)
[2016-07-19] MEDS: MORPHINE SULFATE 4 MG/ML INJ IV PUSH PRN ×4 (07:02→20:34)
[2016-07-19] MEDS: ONDANSETRON HCL 4 MG/2 ML VIAL IVP PRN ×2 (07:03→18:24)
[2016-07-19] MEDS: SODIUM CHLOR 0.9% 1000 ML INJ 1,000 ML IV SCH ×2 (08:09→18:27)
[2016-07-19] MEDS: SUCRALFATE 1 GM TAB PO SCH ×4 (09:00→20:19)
[2016-07-19] MEDS: LISINOPRIL 20 MG TAB PO SCH (09:00)
[2016-07-19] MEDS: METOCLOPRAMIDE HCL 10 MG TAB PO SCH ×4 (09:00→20:19)
[2016-07-19] MEDS: BETHANECHOL CHL 25 MG TAB PO SCH ×4 (09:00→20:19)
--- NOTE | 2016-07-19 10:25 | PD.CONS ---
HPI History of Present Illness This is a 50 year old female with a know Hx of Gastroparesis, DM, HTN who presented to the emergency room on 07/18/16 with complaints of nausea, vomiting, diarrhea. She states she went to [facility] ED on Tuesday was evaluated and discharge home, then presented to [facility] emergency room on 07/17/[address] abdomen was done at that time which showed no obstruction or inflammatory changes. An abdominal xray was done as well which shoed non-obstructive pattern. She was discharged home from ED. She complains of vmiting for about 4 days, abdominal pain in the colostomy area and epigastric area along with dark stools which are more loose than normal. Has noticed some pain with BMS around the stoma area. She has gastroparesis and is on Reglan and dicyclomine. She follows with gastroenterology in [place]. Last colonoscopy and EGD was one year ago she thinks procedures were normal. (Mile Chairez) PFSH Past Medical History diabetes gastroparesis neuropathy Deaf in left ear- [place] Poor eye sight . Past Surgical History Colostomy x 3 right hip tumor removal . (Mile Chairez) Coded Allergies: Robaxin (Verified Allergy, Unknown, 07/17/16) Medications Reported Meds & Active Scripts Active Reported Metoclopramide (Metoclopramide HCl) 10 Mg Tab 10 Mg PO QID Butalbital-Acetaminophen 50-325 Mg Tab 1-2 Tab PO Q4HR PRN Do not exceed 6 tablets per day. Lisinopril 20 Mg Tab 20 Mg PO DAILY Ondansetron (Ondansetron HCl) 8 Mg Tab 8 Mg PO TID Bethanechol 25 Mg Tab 25 Mg PO QID Tamsulosin (Tamsulosin HCl) 0.4 Mg Cap 0.4 Mg PO HS Sucralfate 1 Gm Tab 1 Gm PO QID on empty stomach Family History Hypertension Breast Cancer Bladder Cancer Colon Cancer Liver Cancer Diabetes mellitus CVA Emphysema . Social History Tobacco: smokes 1 PPD Alcohol: denies Illicit drugs: none . (Mile Chairez) Review of Systems Gastrointestinal: COMPLAINS OF: Abdominal pain, Black stools (dark stools), Nausea, Vomiting (Mile Chairez) GI Exam Vitals I&O Vital Signs Date Time Temp Pulse Resp B/P Pulse Ox O2 Delivery O2 Flow Rate FiO2 07/19/16 07:07 14 07/19/16 06:00 76 07/19/16 04:20 98.7 81 14 151/72 99 07/19/16 03:22 84 16 138/62 100 07/19/16 02:24 80 18 109/56 97 07/19/16 02:10 99/56 07/19/16 01:30 124/64 07/19/16 00:43 84 16 216/105 98 07/18/16 23:39 93 18 207/92 98 07/18/16 23:20 83 18 207/96 100 07/18/16 21:56 83 18 210/97 100 07/18/16 20:59 18 07/18/16 20:59 69 16 188/85 100 07/18/16 20:06 98.5 101 22 234/112 99 I/O 07/18/16 07/18/16 07/18/16 07/19/16 07/19/16 07/19/16 07:00 15:00 23:00 07:00 15:00 23:00 Intake Total 629 ml Output Total 420 ml Balance 209 ml Intake Oral 100 ml IV Total 529 ml Output Urine Total 420 ml Laboratory Test 07/18/16 07/18/16 07/19/16 07/19/16 20:10 20:50 03:34 04:00 White Blood Count 13.8 TH/MM3 13.2 TH/MM3 Red Blood Count 4.84 MIL/MM3 4.33 MIL/MM3 Hemoglobin 14.2 GM/DL 12.7 GM/DL Hematocrit 40.0 % 35.6 % Mean Corpuscular Volume 82.7 FL 82.3 FL Mean Corpuscular Hemoglobin 29.4 PG 29.3 PG Mean Corpuscular Hemoglobin 35.5 % 35.6 % Concent Red Cell Distribution Width 13.9 % 13.6 % Platelet Count 405 TH/MM3 313 TH/MM3 Mean Platelet Volume 7.3 FL 7.6 FL Neutrophils (%) (Auto) 80.1 % 84.6 % Lymphocytes (%) (Auto) 15.6 % 11.8 % Monocytes (%) (Auto) 3.4 % 2.7 % Eosinophils (%) (Auto) 0.2 % 0.1 % Basophils (%) (Auto) 0.7 % 0.8 % Neutrophils # (Auto) 11.1 TH/MM3 11.2 TH/MM3 Lymphocytes # (Auto) 2.2 TH/MM3 1.6 TH/MM3 Monocytes # (Auto) 0.5 TH/MM3 0.4 TH/MM3 Eosinophils # (Auto) 0.0 TH/MM3 0.0 TH/MM3 Basophils # (Auto) 0.1 TH/MM3 0.1 TH/MM3 CBC Comment DIFF FINAL DIFF FINAL Differential Comment Sodium Level 133 MEQ/L 136 MEQ/L Potassium Level 4.0 MEQ/L 3.8 MEQ/L Chloride Level 96 MEQ/L 100 MEQ/L Carbon Dioxide Level 25.8 MEQ/L 24.2 MEQ/L Anion Gap 11 MEQ/L 12 MEQ/L Blood Urea Nitrogen 27 MG/DL 25 MG/DL Creatinine 1.38 MG/DL 1.25 MG/DL Estimat Glomerular Filtration 41 ML/MIN 46 ML/MIN Rate Random Glucose 273 MG/DL 301 MG/DL Calcium Level 8.8 MG/DL 8.0 MG/DL Magnesium Level 1.6 MG/DL Total Bilirubin 0.5 MG/DL Aspartate Amino Transf 21 U/L (AST/SGOT) Alanine Aminotransferase 17 U/L (ALT/SGPT) Alkaline Phosphatase 71 U/L Total Creatine Kinase 60 U/L Troponin I LESS THAN 0.02 NG/ML Total Protein 6.9 GM/DL Albumin 2.9 GM/DL Lipase 237 U/L Urine Color LIGHT-YELLOW Urine Turbidity CLEAR Urine pH 7.5 Urine Specific [place] 1.008 Urine Protein 300 mg/dL Urine Glucose (UA) 1000 mg/dL Urine Ketones 10 mg/dL Urine Occult Blood SMALL Urine Nitrite NEG Urine Bilirubin NEG Urine Urobilinogen LESS THAN 2.0 MG/DL Urine Leukocyte Esterase NEG Urine RBC 11 /hpf Urine WBC 1 /hpf Urine Hyaline Casts 2 /lpf Urine Mucus FEW /lpf Microscopic Urinalysis Comment CULT NOT INDICATED Hematology Comments Nasal Screen MRSA (PCR) NEGATIVE Physical Examination HEENT: Pupils round and reactive to light; normocephalic; atraumatic; no jaundice. Throat is clear. NECK: Neck is supple, no JVD, no lymphadenopathy. CHEST: Chest is clear to auscultation and percussion. CARDIAC: Regular rate and rhythm with no murmur gallop or rubs. ABDOMEN: Soft,flat, BS present, had colostomy bad in LUQ with dark green stool EXTREMITIES: No clubbing, cyanosis, or edema. SKIN: Normal; no rash; no jaundice. TIMBER MANAGEMENT TECHNICIAN: No focal deficits; alert and oriented times three. (Mile Chairez) Assessment and Plan Assessment: (1) Intractable nausea and vomiting (2) Abdominal pain, unspecified site Plan: Pain in epigastric and LUQ area sometimes associated with BM (3) Gastroparesis Plan: On Reglan and Dicyclomine (4) History of colostomy Plan This is a 50 year old female with C/O N/V, abdominal pain and loose dark stools over the past [address] abdomen was unremarkable and abdominal xray showed non- obstructive pattern. She has gastroparesis on Reglan and Dicyclomine. She is having dark loose stools. Last EGD/colonoscopy was about one year ago and she thinks procedures had normal findings. Will plan for an EGD likely tomorrow blood pressures were uncontrolled in ED. H&H is stable 12.7/35.6. Plan -IV fluids -Clear liquid diet -Follow H&H -Antiemetics PRN -Continue PPI -Check stool for occult blood -Obtain consent for EGD in am -NPO after midnight -EGD in am -Supportive care Patient was seen and examined by Dr Lopez and myself, this consult is written on his behalf (Mile Chairez) Physician Comments Seen and examined with FABRICE, N/V , diarrhea, > gi bleed. CT scan -ve recently. EGD/Colonoscopy planned for tomorrow. Thank you (Lety Lopez MD) Problem Qualifiers (1) Intractable nausea and vomiting: Qualified Code: R11.2 - Intractable vomiting with nausea, unspecified vomiting type Mile Chairez Jul 19, 2016 10:25 Lety Lopez MD Jul 19, 2016 12:11
--- NOTE | 2016-07-19 10:40 | HHI.PR ---
Subjective Remarks f/u for abdominal pain, N/V patient stated pain and nausea improved with medication. She stated the dark stools happened yesterday. Her finance is at the bedside.expressing his concerns. She is afebrile. Objective Vitals Vital Signs Date Time Temp Pulse Resp B/P Pulse Ox O2 Delivery O2 Flow Rate FiO2 07/19/16 07:07 14 07/19/16 06:00 76 07/19/16 04:20 98.7 81 14 151/72 99 07/19/16 03:22 84 16 138/62 100 07/19/16 02:24 80 18 109/56 97 07/19/16 02:10 99/56 07/19/16 01:30 124/64 07/19/16 00:43 84 16 216/105 98 07/18/16 23:39 93 18 207/92 98 07/18/16 23:20 83 18 207/96 100 07/18/16 21:56 83 18 210/97 100 07/18/16 20:59 18 07/18/16 20:59 69 16 188/85 100 07/18/16 20:06 98.5 101 22 234/112 99 I/O 07/18/16 07/18/16 07/18/16 07/19/16 07/19/16 07/19/16 07:00 15:00 23:00 07:00 15:00 23:00 Intake Total 629 ml Output Total 420 ml Balance 209 ml Intake Oral 100 ml IV Total 529 ml Output Urine Total 420 ml Result Diagram: 07/19/16 0334 07/19/16 033 Objective Remarks GENERAL: in NAD CARDIOVASCULAR: Regular rate and rhythm without murmurs, gallops, or rubs. RESPIRATORY: Breath sounds equal bilaterally. No accessory muscle use. GASTROINTESTINAL: ostomy in place with dark stools. + TTP in epigastric area. + BS. no peritoneal signs. MUSCULOSKELETAL: No cyanosis, or edema. BACK: Nontender without obvious deformity. No CVA tenderness. Medications and IVs Current Medications Morphine Sulfate (Morphine Inj) 4 mg ONCE ONCE IV PUSH Last administered on 20:30; Start 07/18/16 at 20:15; Stop 07/18/16 at 20:16; Status DC Ondansetron HCl 4 mg 4 mg ONCE ONCE IVP Last administered on 07/18/16 20:30; Start 07/18/16 at 20:15; Stop 07/18/16 at 20:16; Status DC Sodium Chloride (NS 1000 ml Inj) 1,000 ml @ 1,000 mls/hr Q1H IV Last administered on 07/18/16 20:27; Start 07/18/16 at 20:03; Stop 07/18/16 at 21:02 ; Status DC Dicyclomine HCl (Bentyl Inj) 20 mg ONCE ONCE IM Last administered on 20:30; Start 07/18/16 at 20:15; Stop 07/18/16 at 20:16; Status DC Labetalol HCl (Trandate Inj) 20 mg ONCE ONCE IV PUSH Last administered on 07/18 20:28; Start 07/18/16 at 20:15; Stop 07/18/16 at 20:16; Status DC Pantoprazole Sodium 40 mg 40 mg ONCE ONCE IVP Last administered on 07/18/16 20:29; Start 07/18/16 at 20:15; Stop 07/18/16 at 20:16; Status DC Sodium Chloride (NS 1000 ml Inj) 1,000 ml @ 100 mls/hr Q10H IV Last administered on 07/18/16 23:26; Start 07/18/16 at 22:09 Acetaminophen (Tylenol) 650 mg Q4H PRN PO TEMP > 100.4; Start 07/18/16 at 22:15 Ondansetron HCl (Zofran Inj) 4 mg Q6H PRN IVP NAUSEA OR VOMITING Last administered on 07/19/16 07:03; Start 07/18/16 at 22:15 Prochlorperazine (Compazine Supp) 25 mg Q12H PRN LA NAUSEA OR VOMITING; Start 07/18/16 at 22:15; Stop 07/19/16 at 03:35; Status DC Magnesium Hydroxide (Milk Of Magnesia Liq) 30 ml Q12H PRN PO CONSTIPATION; Start 07/18/16 at 22:15 Naloxone HCl (Narcan Inj) 0.4 mg UNSCH PRN IV SEE LABEL COMMENTS; Start at 22:15 Enalaprilat (Vasotec Inj) 2.5 mg ONCE ONCE IV PUSH Last administered on 23:26; Start 07/18/16 at 22:30; Stop 07/18/16 at 22:31; Status DC Clonidine 0.1 mg 0.1 mg Q6H PRN PO SBP> OR = 180, DBP> OR = 100 Last administered on 07/19/16 00:40; Start 07/19/16 at 00:30 Nicardipine HCl/ Sodium Chloride (Cardene Inj/NS 250 ml Inj) 260 ml @ 0 mls/hr TITRATE IV Last administered on 07/19/16 01:32; Start 07/19/16 at 01:15; Stop 07/19/16 at 06:17; Status DC Prochlorperazine Maleate (Compazine) 5 mg Q6H PRN PO NAUSEA OR VOMITING; Start 07/19/16 at 03:30 Miscellaneous Information Patient in critical care unit? Ass... Q361D XX Last administered on 07/19/16 04:30; Start 07/19/16 at 04:30 Chlorhexidine Gluconate (Chlorhexidine 2% Cloth) 3 pack DAILY@04 TOP ; Start at 04:00; Stop 07/24/16 at 04:01 Chlorhexidine Gluconate (Chlorhexidine 2% Cloth) 3 pack UNSCH PRN TOP HYGIENIC CARE; Start 07/19/16 at 04:30; Stop 07/24/16 at 04:22 Dextrose (D50w (Vial) Inj) 25 ml UNSCH PRN IV PUSH HYPOGLYCEMIA-SEE COMMENTS; Start 07/19/16 at 05:15 Glucagon (Glucagon Inj) 1 mg UNSCH PRN OTHER HYPOGLYCEMIA-SEE COMMENTS; Start 07/19/16 at 05:15 Insulin Aspart (NovoLOG SUPPLEMENTAL SCALE) 1 ACHS SLIDING SCALE SQ Last administered on 07/19/16 07:00; Start 07/19/16 at 07:00 Bethanechol Chloride (Urecholine) 25 mg QID PO ; Start 07/19/16 at 09:00 Lisinopril (Prinivil) 20 mg DAILY PO ; Start 07/19/16 at 09:00 Metoclopramide HCl (Reglan) 10 mg QID PO ; Start 07/19/16 at 09:00 Sucralfate (Carafate) 1 gm QID PO ; Start 07/19/16 at 09:00 Morphine Sulfate (Morphine Inj) 2 mg Q3H PRN IV PUSH PAIN SCALE 4 TO 10 Last administered on 07/19/16t 10:04; Start 07/19/16 at 05:45 A/P Problem List: (1) Abdominal pain, unspecified site ICD Code: R10.9 Status: Acute (2) Intractable nausea and vomiting ICD Code: R11.2 Status: Acute (3) Hypertensive urgency ICD Code: I16.0 Status: Acute (4) Renal insufficiency ICD Code: N28.9 Status: Acute (5) Dehydration ICD Code: E86.0 Status: Acute (6) Type 2 diabetes mellitus ICD Code: E11.9 Status: Chronic Assessment and Plan Ms. Reed is a 50-year-old female with past medical history of neuropathy, type 2 diabetes mellitus, hypertension, and gastroparesis who presented to the emergency room on 07/18/2016 for evaluation of nausea, vomiting, and diarrhea. The patient also has a colostomy to following partial colectomy though she did not go into great detail regarding why this was needed. Abdominal pain with intractable nausea and vomiting - dark stools +Hemoccult stool concerning for bleed. -GI consulted and will do EGD. -on Protonix. continue to trend H/H. -continue to supportive care. Hypertensive urgency - While in the emergency room, the patient had hypertensive urgency with initial blood pressure of 234/112. Blood pressure did not respond to multiple intravenous antihypertensives or by mouth clonidine and subsequently a Cardene drip was initiated with rapid response progressing to hypotension. - Cardene drip d/c'd - She is admitted to the intensive care unit for closer monitoring of blood pressure. -BP improved. Renal insufficiency most likely related to dehydration - Normal saline at 100 cc per hour - Cr improving. - Avoid nephrotoxins Type 2 diabetes mellitus - Accu-Cheks before meals and at bedtime with low-dose sliding scale NovoLog coverage - Hypoglycemia protocol ordered - Follow trends and blood glucose levels and adjust treatment as needed DVT prophylaxis - SCDs Discharge Planning continues to be symptomatic and requires supportive care. hemoglobin is dropping. Gi will do EGD tomorrow. Problem Qualifiers (1) Intractable nausea and vomiting: Qualified Code: R11.2 - Intractable vomiting with nausea, unspecified vomiting type Michelle Ward MD Jul 19, 2016 10:40
--- NOTE | 2016-07-19 14:53 | EKG ---
Date Performed: 07/18/2016 Time Performed: 20:41:19 PTAGE: 50 years EKG: Sinus rhythm BORDERLINE RIGHT AXIS DEVIATION BORDERLINE ECG NO PREVIOUS TRACING DOCTOR: Loni Mcdaniel Interpretating Date/Time 07/19/2016 14:49:09
[2016-07-19] MEDS ORDERED: PEG (High)/E-LYTE SOLN 4000 ML BTL PO ONE (16:00)
[2016-07-20] VITALS (11 sets, daily range): BP systolic 128–198; BP diastolic 68–94; PULSE 63–80; RESP 14–19; TEMP 98–98.9; O2SAT 95–98
[2016-07-20] MEDS: MORPHINE SULFATE 4 MG/ML INJ IV PUSH PRN ×4 (00:13→23:51)
[2016-07-20] MEDS: ONDANSETRON HCL 4 MG/2 ML VIAL IVP PRN ×4 (00:14→20:21)
[2016-07-20] MEDS: SODIUM CHLOR 0.9% 1000 ML INJ 1,000 ML IV SCH ×3 (00:14→23:51)
[2016-07-20] MEDS: CHLORHEXIDINE GLUCONATE 2 % 1 PACK (2 CLOTHS)(taper/protocol) TOP SCH (03:38)
[2016-07-20] MEDS: INSULIN ASPART SUPPLEMENTAL SCALE SQ SCH ×4 (05:22→19:55)
[2016-07-20 05:58] LABS: HEMATOCRIT 32.5 % (35.0-46.0); MEAN CELL VOLUME 83.9 FL (80.0-100.0); MEAN CORPUSCULAR HEMOGLOBIN 29.5 PG (27.0-34.0); MEAN CORPUSCULAR HGB CONC 35.2 % (32.0-36.0); PLATELET COUNT 302 TH/MM3 (150-450); RED BLOOD COUNT 3.88 MIL/MM3 (4.00-5.30); RED CELL DISTRIBUTION WIDTH 13.7 % (11.6-17.2); REVIEW FLAG FINAL; WHITE BLOOD COUNT 9.9 TH/MM3 (4.0-11.0)
[2016-07-20 06:25] LABS: BICARBONATE 27.4 MEQ/L (21.0-32.0); POTASSIUM 3.3 MEQ/L (3.5-5.1)
[2016-07-20] MEDS: BETHANECHOL CHL 25 MG TAB PO SCH ×4 (08:26→20:20)
[2016-07-20] MEDS: METOCLOPRAMIDE HCL 10 MG TAB PO SCH ×4 (08:26→20:21)
[2016-07-20] MEDS: SUCRALFATE 1 GM TAB PO SCH ×4 (08:26→20:20)
[2016-07-20] MEDS: LISINOPRIL 20 MG TAB PO SCH (08:28)
[2016-07-20] MEDS ORDERED: PROPOFOL 200 MG/20 ML AMP IV ONE (09:55)
--- NOTE | 2016-07-20 10:01 | GIPROC ---
[facility] [address] [facility]. [facility], [address] EGD PROCEDURE REPORT EXAM DATE: 07/20/2016 PATIENT NAME: Eden Reed MR #: [id number] BIRTHDATE: 1965 ATTENDING: Lety Lopez MD ORDER #: [id number] ENROLLMENT MANAGEMENT VICE PRESIDENT: Autumn Smith and Getachew Khan STATUS: inpatient INDICATIONS: The patient is a 50 yr old female here for an EGD due to history of esophageal reflux and abdominal pain PROCEDURE PERFORMED: EGD w/ biopsy MEDICATIONS: None and Per Anesthesia. TOPICAL ANESTHETIC: CONSENT: The patient understands the risks and benefits of the procedure and understands that these risks include, but are not limited to: sedation, allergic reaction, infection, perforation and/or bleeding. Alternative means of evaluation and treatment include, among others: physical exam, x-rays, and/or surgical intervention. The patient elects to proceed with this endoscopic procedure. medical equipment was checked for proper function. Hand hygiene and appropriate measures for infection prevention was taken. After the risks, benefits and alternatives of the procedure were thoroughly explained, Informed consent was verified, confirmed and timeout was successfully executed by the treatment team. The patient was anesthetized with topical anesthesia and the EC-[id number] (Pedi C) endoscope was introduced through the mouth and advanced to the second portion of the duodenum. Retroflexed views revealed no abnormalities and Retroflexed views revealed The gastroscope was then slowly withdrawn and removed. ESOPHAGUS: There was LA Class A esophagitis noted. STOMACH: There was mild gastritis in the gastric antrum. A biopsy was performed using cold forceps. ADVERSE EVENTS: There were no complications. IMPRESSIONS: 1. There was LA Class A esophagitis noted 2. There was mild gastritis in the gastric antrum; biopsy was performed 3. Retroflexed views revealed no abnormalities 4. Retroflexed views revealed RECOMMENDATIONS: 1. Await biopsy results. Biopsy results will not be ready for 7-10 days. If you don't hear from us in two weeks, call our office for biopsy results. 2. Anti-reflux regimen 3. Continue PPI PATIENT CONDITION: stable DISPOSITION: Inpatient REPEAT EXAM: Return 3 years EGD pending biopsy results Lety Lopez MD eSigned: Lety oLpez MD 07/20/2016 10:01 AM cc: [id number]
--- NOTE | 2016-07-20 10:10 | GIPROC ---
[facility] [address] [facility]. [facility], [address] COLONOSCOPY PROCEDURE REPORT EXAM DATE: 07/20/2016 PATIENT NAME: Eden Reed MR #: [id number] BIRTHDATE: 1965 ENDOSCOPIST: Lety Lopez MD ORDER #: [id number] AERIAL GUNNER SUPERINTENDENT: Autumn Smith and Getachew Khan STATUS: inpatient INDICATIONS: The patient is a 50 yr old female here for a colonoscopy due to abdominal pain and hematochezia PROCEDURE PERFORMED: Colonoscopy, incomplete MEDICATIONS: None and Per Anesthesia. PREP QUALITY: poor PREP TYPE:GoLytely ESTIMATED BLOOD LOSS: None CONSENT: The patient understands the risks and benefits of the procedure and understands that these risks include, but are not limited to: sedation, allergic reaction, infection, perforation and/or bleeding. Alternative means of evaluation and treatment include, among others: physical exam, x-rays, and/or surgical intervention. The patient elects to proceed with this endoscopic procedure. medical equipment was checked for proper function. Hand hygiene and appropriate measures for infection prevention was taken. After the risks, benefits and alternatives of the procedure were thoroughly explained, Informed consent was verified, confirmed and timeout was successfully executed by the treatment team. A digital exam revealed external hemorrhoids The Pentax EC-[id number] endoscope was introduced through the anus and advanced to the sigmoid colon. The instrument was then slowly withdrawn as the colon was fully examined. COLON FINDINGS: Fecal impaction, broken up digitally and with the scope. Retroflexed views revealed internal hemorrhoids and Retroflexed views revealed medium internal hemorrhoids The scope was then completely withdrawn from the patient and the procedure terminated. ADVERSE EVENTS: There were no complications. IMPRESSIONS: 1. Fecal impaction, broken up digitally and with the scope 2. Retroflexed views revealed internal hemorrhoids 3. Retroflexed views revealed medium internal hemorrhoids 4. Revealed external hemorrhoids RECOMMENDATIONS: Soap suds enemas x 2, glycerin supp. Golytle RECALL: Return 1 day Colonoscopy Lety Lopez MD eSigned: Lety Lopez MD 07/20/2016 10:09 AM cc: [id number]
[2016-07-20] MEDS ORDERED: PEG (High)/E-LYTE SOLN 4000 ML BTL PO ONE (11:15)
--- NOTE | 2016-07-20 16:04 | HHI.PR ---
Subjective Remarks f/u for nausea and abdominal pain. patient found sleeping and woken up with me. patient stated her throat is sore and she is having a hard time drinking Golytly. patient c/o nausea and abdominal pain. She said she is unsure if it is better. Objective Vitals Vital Signs Date Time Temp Pulse Resp B/P Pulse Ox O2 Delivery O2 Flow Rate FiO2 07/20/16 14:00 68 07/20/16 12:00 68 07/20/16 10:45 68 15 169/82 99 07/20/16 10:30 67 14 176/82 99 Nasal Cannula 2 07/20/16 10:15 98.2 66 16 163/74 99 07/20/16 10:00 65 07/20/16 08:00 75 07/20/16 06:00 63 07/20/16 04:00 71 07/20/16 04:00 98.0 71 16 144/75 95 07/20/16 02:00 66 07/20/16 00:00 65 07/20/16 00:00 98.2 65 16 159/80 96 07/19/16 22:00 67 07/19/16 20:00 66 07/19/16 20:00 98.5 66 16 140/68 96 07/19/16 18:00 69 07/19/16 16:00 98.5 101 23 147/65 95 07/19/16 16:00 69 I/O 07/19/16 07/19/16 07/19/16 07/20/16 07/20/16 07/20/16 07:00 15:00 23:00 07:00 15:00 23:00 Intake Total 629 ml 1236 ml 1300 ml 677 ml 450 ml Output Total 420 ml 600 ml 500 ml 2100 ml 600 ml Balance 209 ml 636 ml 800 ml -1423 ml -150 ml Intake Oral 100 ml 480 ml 800 ml 0 ml IV Total 529 ml 756 ml 500 ml 677 ml 150 ml Other 300 ml Output Urine Total 420 ml 600 ml 500 ml 600 ml 500 ml Stool Total 1500 ml 100 ml # Voids 3 2 2 2 Result Diagram: 07/20/1652007/20/1621 Objective Remarks GENERAL: in NAD CARDIOVASCULAR: Regular rate and rhythm without murmurs, gallops, or rubs. RESPIRATORY: Breath sounds equal bilaterally. No accessory muscle use. GASTROINTESTINAL: ostomy in place with dark stools. + TTP in epigastric area. + BS. no peritoneal signs. MUSCULOSKELETAL: No cyanosis, or edema. BACK: Nontender without obvious deformity. No CVA tenderness. Medications and IVs Current Medications Morphine Sulfate (Morphine Inj) 4 mg ONCE ONCE IV PUSH Last administered on 20:30; Start 07/18/16 at 20:15; Stop 07/18/16 at 20:16; Status DC Ondansetron HCl 4 mg 4 mg ONCE ONCE IVP Last administered on 07/18/16 20:30; Start 07/18/16 at 20:15; Stop 07/18/16 at 20:16; Status DC Sodium Chloride (NS 1000 ml Inj) 1,000 ml @ 1,000 mls/hr Q1H IV Last administered on 07/18/16 20:27; Start 07/18/16 at 20:03; Stop 07/18/16 at 21:02 ; Status DC Dicyclomine HCl (Bentyl Inj) 20 mg ONCE ONCE IM Last administered on 20:30; Start 07/18/16 at 20:15; Stop 07/18/16 at 20:16; Status DC Labetalol HCl (Trandate Inj) 20 mg ONCE ONCE IV PUSH Last administered on 07/18 20:28; Start 07/18/16 at 20:15; Stop 07/18/16 at 20:16; Status DC Pantoprazole Sodium 40 mg 40 mg ONCE ONCE IVP Last administered on 07/18/16 20:29; Start 07/18/16 at 20:15; Stop 07/18/16 at 20:16; Status DC Sodium Chloride (NS 1000 ml Inj) 1,000 ml @ 100 mls/hr Q10H IV Last administered on 07/20/16 13:01; Start 07/18/16 at 22:09 Acetaminophen (Tylenol) 650 mg Q4H PRN PO TEMP > 100.4; Start 07/18/16 at 22:15 Ondansetron HCl (Zofran Inj) 4 mg Q6H PRN IVP NAUSEA OR VOMITING Last administered on 07/20/16 14:29; Start 07/18/16 at 22:15 Prochlorperazine (Compazine Supp) 25 mg Q12H PRN [place] NAUSEA OR VOMITING; Start 07/18/16 at 22:15; Stop 07/19/16 at 03:35; Status DC Magnesium Hydroxide (Milk Of Magnesia Liq) 30 ml Q12H PRN PO CONSTIPATION; Start 07/18/16 at 22:15 Naloxone HCl (Narcan Inj) 0.4 mg UNSCH PRN IV SEE LABEL COMMENTS; Start at 22:15 Enalaprilat (Vasotec Inj) 2.5 mg ONCE ONCE IV PUSH Last administered on 23:26; Start 07/18/16 at 22:30; Stop 07/18/16 at 22:31; Status DC Clonidine 0.1 mg 0.1 mg Q6H PRN PO SBP> OR = 180, DBP> OR = 100 Last administered on 07/19/16 00:40; Start 07/19/16 at 00:30 Nicardipine HCl/ Sodium Chloride (Cardene Inj/NS 250 ml Inj) 260 ml @ 0 mls/hr TITRATE IV Last administered on 07/19/16 01:32; Start 07/19/16 at 01:15; Stop 07/19/16 at 06:17; Status DC Prochlorperazine Maleate (Compazine) 5 mg Q6H PRN PO NAUSEA OR VOMITING; Start 07/19/16 at 03:30 Miscellaneous Information Patient in critical care unit? Ass... Q361D XX Last administered on 07/19/16 04:30; Start 07/19/16 at 04:30 Chlorhexidine Gluconate (Chlorhexidine 2% Cloth) 3 pack DAILY@04 TOP Last administered on 07/20/16 03:38; Start 07/20/16 at 04:00; Stop 07/24/16 at 04:01 Chlorhexidine Gluconate (Chlorhexidine 2% Cloth) 3 pack UNSCH PRN TOP HYGIENIC CARE; Start 07/19/16 at 04:30; Stop 07/24/16 at 04:22 Dextrose (D50w (Vial) Inj) 25 ml UNSCH PRN IV PUSH HYPOGLYCEMIA-SEE COMMENTS; Start 07/19/16 at 05:15 Glucagon (Glucagon Inj) 1 mg UNSCH PRN OTHER HYPOGLYCEMIA-SEE COMMENTS; Start 07/19/16 at 05:15 Insulin Aspart (NovoLOG SUPPLEMENTAL SCALE) 1 ACHS SLIDING SCALE SQ Last administered on 07/19/16 11:00; Start 07/19/16 at 07:00 Bethanechol Chloride (Urecholine) 25 mg QID PO Last administered on 07/20/16 13:01; Start 07/19/16 at 09:00 Lisinopril (Prinivil) 20 mg DAILY PO Last administered on 07/20/16 08:28; Start 07/19/16 at 09:00 Metoclopramide HCl (Reglan) 10 mg QID PO Last administered on 07/20/16 13:01; Start 07/19/16 at 09:00 Sucralfate (Carafate) 1 gm QID PO Last administered on 07/20/16 13:01; Start 07/19/16 at 09:00 Morphine Sulfate (Morphine Inj) 2 mg Q3H PRN IV PUSH PAIN SCALE 4 TO 10 Last administered on 07/20/16 05:23; Start 07/19/16 at 05:45 Polyethylene Glycol/ Electrolytes (Colyte Liq) 4,000 ml ONCE ONCE PO Last administered on 07/19/16 17:25; Start 07/19/16 at 16:00; Stop 07/19/16 at 16:01 ; Status DC Polyethylene Glycol/ Electrolytes (Colyte Liq) 4,000 ml ONCE ONCE PO ; Start at 11:15; Stop 07/20/16 at 11:16; Status DC Propofol (Diprivan 200 Mg/20 ml Inj) 150 mg STK-MED ONCE IV ; Start 07/20/16 at 09:55; Stop 07/20/16 at 11:55; Status DC A/P Problem List: (1) Abdominal pain, unspecified site ICD Code: R10.9 Status: Acute (2) Intractable nausea and vomiting ICD Code: R11.2 Status: Acute (3) Hypertensive urgency ICD Code: I16.0 Status: Acute (4) Renal insufficiency ICD Code: N28.9 Status: Acute (5) Dehydration ICD Code: E86.0 Status: Acute (6) Type 2 diabetes mellitus ICD Code: E11.9 Status: Chronic Assessment and Plan Ms. Reed is a 50-year-old female with past medical history of neuropathy, type 2 diabetes mellitus, hypertension, and gastroparesis who presented to the emergency room on 07/18/2016 for evaluation of nausea, vomiting, and diarrhea. The patient also has a colostomy to following partial colectomy though she did not go into great detail regarding why this was needed. Abdominal pain with intractable nausea and vomiting - dark stools +Hemoccult stool concerning for bleed. -GI consulted s/p on 07/20 EGD showing gastritis and colonoscopy showing internal and external hemorrhoid with fecal impaction that was broken up digitally. -repeat colonoscopy tomorrow. -on Protonix. continue to trend H/H. -continue to supportive care. Hypertensive urgency - While in the emergency room, the patient had hypertensive urgency with initial blood pressure of 234/112. Blood pressure did not respond to multiple intravenous antihypertensives or by mouth clonidine and subsequently a Cardene drip was initiated with rapid response progressing to hypotension. - Cardene drip d/c'd - She is admitted to the intensive care unit for closer monitoring of blood pressure. -BP has been stable. she can be downgraded. Renal insufficiency most likely related to dehydration - Normal saline at 100 cc per hour - Cr improving. - Avoid nephrotoxins Type 2 diabetes mellitus - Accu-Cheks before meals and at bedtime with low-dose sliding scale NovoLog coverage - Hypoglycemia protocol ordered - Follow trends and blood glucose levels and adjust treatment as needed DVT prophylaxis - SCDs Discharge Planning repeat colonoscopy tomorrow. BP stable so can be downgraded to med/surg with telemetry. Problem Qualifiers (1) Intractable nausea and vomiting: Qualified Code: R11.2 - Intractable vomiting with nausea, unspecified vomiting type Michelle Ward MD Jul 20, 2016 16:04
[2016-07-20] MEDS: cloNIDine HCL 0.1 MG TAB PO PRN (17:09)
[2016-07-20] MEDS ORDERED: GLYCERIN ADULT 2 GM SUPP RECTAL SCH (20:00)
[2016-07-20 21:11] LABS: MEAN CORPUSCULAR HGB CONC 36.3 % (32.0-36.0)
[2016-07-21] VITALS (11 sets, daily range): BP systolic 123–208; BP diastolic 63–95; PULSE 64–73; RESP 14–20; TEMP 97.5–98.6; O2SAT 95–100
[2016-07-21] MEDS: ONDANSETRON HCL 4 MG/2 ML VIAL IVP PRN ×2 (01:04→08:20)
[2016-07-21] MEDS: CHLORHEXIDINE GLUCONATE 2 % 1 PACK (2 CLOTHS)(taper/protocol) TOP SCH (03:14)
[2016-07-21] MEDS: MORPHINE SULFATE 4 MG/ML INJ IV PUSH PRN ×4 (03:48→21:14)
[2016-07-21 04:21] LABS: MEAN CELL VOLUME 82.6 FL (80.0-100.0); PLATELET COUNT 290 TH/MM3 (150-450); RED BLOOD COUNT 3.75 MIL/MM3 (4.00-5.30); RED CELL DISTRIBUTION WIDTH 13.9 % (11.6-17.2); WHITE BLOOD COUNT 8.8 TH/MM3 (4.0-11.0)
[2016-07-21 04:25] LABS: REVIEW FLAG FINAL
[2016-07-21 04:44] LABS: BICARBONATE 26.6 MEQ/L (21.0-32.0); POTASSIUM 3.1 MEQ/L (3.5-5.1)
[2016-07-21] MEDS: INSULIN ASPART SUPPLEMENTAL SCALE SQ SCH ×4 (05:33→21:00)
[2016-07-21] MEDS: POTASSIUM CHLOR 20 MEQ PREMIX 100 ML IV SCH ×2 (06:22→13:18)
[2016-07-21] MEDS: METOCLOPRAMIDE HCL 10 MG TAB PO SCH ×4 (08:12→21:13)
[2016-07-21] MEDS: LISINOPRIL 20 MG TAB PO SCH (08:12)
[2016-07-21] MEDS: BETHANECHOL CHL 25 MG TAB PO SCH ×4 (08:12→21:14)
[2016-07-21] MEDS: SUCRALFATE 1 GM TAB PO SCH ×4 (08:12→21:14)
--- NOTE | 2016-07-21 09:32 | HHI.GIFU ---
Subjective Remarks Resting in bed. Nausea without vomiting. No abdominal pain. (Roro Kelley) Objective Vitals I&O Vital Signs Date Time Temp Pulse Resp B/P Pulse Ox O2 Delivery O2 Flow Rate FiO2 07/21/16 04:00 98.2 70 15 144/72 97 07/21/16 04:00 70 07/21/16 00:00 67 07/21/16 00:00 98.6 67 20 166/79 95 07/20/16 20:00 71 07/20/16 20:00 98.9 71 19 128/68 97 07/20/16 18:00 80 07/20/16 16:00 73 07/20/16 16:00 98.2 75 16 178/83 98 07/20/16 14:00 68 07/20/16 12:00 68 07/20/16 12:00 98.2 65 16 185/85 98 07/20/16 10:45 68 15 169/82 99 07/20/16 10:30 67 14 176/82 99 Nasal Cannula 2 07/20/16 10:15 98.2 66 16 163/74 99 07/20/16 10:00 65 I/O 07/20/16 07/20/16 07/20/16 07/21/16 07/21/16 07/21/16 07:00 15:00 23:00 07:00 15:00 23:00 Intake Total 677 ml 450 ml 822 ml 699 ml Output Total 2100 ml 600 ml 1100 ml 4350 ml Balance -1423 ml -150 ml -278 ml -3651 ml Intake Oral 0 ml IV Total 677 ml 150 ml 822 ml 699 ml Other 300 ml Output Urine Total 600 ml 500 ml 500 ml 850 ml Stool Total 1500 ml 100 ml 600 ml 3500 ml # Voids 2 2 2 Laboratory Laboratory Tests Test 07/21/16 03:42 White Blood Count 8.8 Red Blood Count 3.75 Hemoglobin 11.2 Hematocrit 31.0 Mean Corpuscular Volume 82.6 Mean Corpuscular Hemoglobin 30.0 Mean Corpuscular Hemoglobin 36.3 Concent Red Cell Distribution Width 13.9 Platelet Count 290 Mean Platelet Volume 7.0 Sodium Level 139 Potassium Level 3.1 Chloride Level 102 Carbon Dioxide Level 26.6 Anion Gap 10 Blood Urea Nitrogen 11 Creatinine 0.74 Estimat Glomerular Filtration 83 Rate Random Glucose 62 Calcium Level 7.8 Magnesium Level 1.3 Imaging Last Impressions Chest X-Ray 07/18/162002 Signed Impressions: Service Date/Time: Monday, July 18, 2016 20:36 - CONCLUSION: No acute disease. Dusty Buckner MD Physical Exam HEENT: Normocephalic; atraumatic; no jaundice. CHEST: CTA CARDIAC: RRR. ABDOMEN: Soft, nondistended, nontender; no hepatosplenomegaly; bowel sounds are present in all four quadrants. Colostomy with cunningham colored liquid and small amount dark green. EXTREMITIES: No clubbing, cyanosis, or edema. SKIN: Normal; no rash; no jaundice. [employer] ELEMENTS: No focal deficits; alert and oriented times three. (Roro Kelley) Assessment and Plan Plan ASSESSMENT: - Intractable nausea and vomiting. S/P EGD (07/20/16)---> LA Class A esophagitis , mild gastritis in the gastric antrum, retroflexed views revealed no abnormalities. Pathology pending. PPI. EGD 3 years. - Abdominal pain. EGD with esophagitis, gastritis. Incomplete colonoscopy ()---> Fecal impaction, broken up digitally and with the scope, Retroflexed views revealed medium internal hemorrhoids, external hemorrhoids. S/P SSE x 2, Glycerin suppository, Golytely. Plan for repeat colonoscopy today. - Anemia. 11.2/31.0. - Gastroparesis. Nausea without vomiting. Bethanechol, reglan. - DM, RI, HTN, Electrolyte abnormalities per primary Plan - Plan for repeat colonoscopy today - Obtain consents - NPO - Cont. PPI - Cont. Reglan - Cont. Bethanechol - Await pathology from EGD - Supportive care - Further recommendations to follow based on results of above - Rpt EGD 3 years. - PT seen and examined by Dr. Lopez and myself and this note is written on his behalf (Roro Kelley) Physician Comments Seen and examined with FABRICE, colonoscopy through colostomy today. Keep NPO. Still having abdominal pain. (Lety Lopez MD) Roro Kelley Jul 21, 2016 09:32 Lety Lopez MD Jul 21, 2016 14:59
[2016-07-21] MEDS: SODIUM CHLOR 0.9% 1000 ML INJ 1,000 ML IV SCH ×2 (10:09→20:09)
[2016-07-21] MEDS: cloNIDine HCL 0.1 MG TAB PO PRN ×2 (10:58→18:08)
[2016-07-21] MEDS ORDERED: MAGNESIUM SULFATE 1 GM PREMIX 100 ML IV ONE (11:00)
--- NOTE | 2016-07-21 12:19 | HHI.PR ---
Subjective Remarks f/u with abdominal pain and nausea. patient stated she is better with medication. no acute events. she is scheduled for a colonoscopy. Objective Vitals Vital Signs Date Time Temp Pulse Resp B/P Pulse Ox O2 Delivery O2 Flow Rate FiO2 07/21/16 12:00 69 07/21/16 12:00 98.6 69 14 162/73 99 07/21/16 11:03 188/83 07/21/16 08:00 98.0 68 15 182/80 97 07/21/16 08:00 64 07/21/16 04:00 98.2 70 15 144/72 97 07/21/16 04:00 70 07/21/16 00:00 67 07/21/16 00:00 98.6 67 20 166/79 95 07/20/16 20:00 71 07/20/16 20:00 98.9 71 19 128/68 97 07/20/16 18:00 80 07/20/16 16:00 73 07/20/16 16:00 98.2 75 16 178/83 98 07/20/16 14:00 68 I/O 07/20/16 07/20/16 07/20/16 07/21/16 07/21/16 07/21/16 06:59 14:59 22:59 06:59 14:59 22:59 Intake Total 677 ml 450 ml 822 ml 699 ml Output Total 2100 ml 600 ml 1100 ml 4350 ml Balance -1423 ml -150 ml -278 ml -3651 ml Intake Oral 0 ml IV Total 677 ml 150 ml 822 ml 699 ml Other 300 ml Output Urine Total 600 ml 500 ml 500 ml 850 ml Stool Total 1500 ml 100 ml 600 ml 3500 ml # Voids 2 2 2 Result Diagram: 07/21/1634107/21/16 034 Objective Remarks GENERAL: in NAD CARDIOVASCULAR: Regular rate and rhythm without murmurs, gallops, or rubs. RESPIRATORY: Breath sounds equal bilaterally. No accessory muscle use. GASTROINTESTINAL: ostomy in place with dark stools. + TTP in epigastric area. + BS. no peritoneal signs. MUSCULOSKELETAL: No cyanosis, or edema. BACK: Nontender without obvious deformity. No CVA tenderness. Medications and IVs Current Medications Morphine Sulfate (Morphine Inj) 4 mg ONCE ONCE IV PUSH Last administered on t 20:30; Start 07/18/16 at 20:15; Stop 07/18/16 at 20:16; Status DC Ondansetron HCl 4 mg 4 mg ONCE ONCE IVP Last administered on 07/18/16 20:30; Start 07/18/16 at 20:15; Stop 07/18/16 at 20:16; Status DC Sodium Chloride (NS 1000 ml Inj) 1,000 ml @ 1,000 mls/hr Q1H IV Last administered on 07/18/16 20:27; Start 07/18/16 at 20:03; Stop 07/18/16 at 21:02 ; Status DC Dicyclomine HCl (Bentyl Inj) 20 mg ONCE ONCE IM Last administered on 20:30; Start 07/18/16 at 20:15; Stop 07/18/16 at 20:16; Status DC Labetalol HCl (Trandate Inj) 20 mg ONCE ONCE IV PUSH Last administered on 07/18 20:28; Start 07/18/16 at 20:15; Stop 07/18/16 at 20:16; Status DC Pantoprazole Sodium 40 mg 40 mg ONCE ONCE IVP Last administered on 07/18/16 20:29; Start 07/18/16 at 20:15; Stop 07/18/16 at 20:16; Status DC Sodium Chloride (NS 1000 ml Inj) 1,000 ml @ 100 mls/hr Q10H IV Last administered on 07/21/16 10:09; Start 07/18/16 at 22:09 Acetaminophen (Tylenol) 650 mg Q4H PRN PO TEMP > 100.4; Start 07/18/16 at 22:15 Ondansetron HCl (Zofran Inj) 4 mg Q6H PRN IVP NAUSEA OR VOMITING Last administered on 07/21/16 08:20; Start 07/18/16 at 22:15 Prochlorperazine (Compazine Supp) 25 mg Q12H PRN SC NAUSEA OR VOMITING; Start 07/18/16 at 22:15; Stop 07/19/16 at 03:35; Status DC Magnesium Hydroxide (Milk Of Magnesia Liq) 30 ml Q12H PRN PO CONSTIPATION; Start 07/18/16 at 22:15 Naloxone HCl (Narcan Inj) 0.4 mg UNSCH PRN IV SEE LABEL COMMENTS; Start at 22:15 Enalaprilat (Vasotec Inj) 2.5 mg ONCE ONCE IV PUSH Last administered on 23:26; Start 07/18/16 at 22:30; Stop 07/18/16 at 22:31; Status DC Clonidine 0.1 mg 0.1 mg Q6H PRN PO SBP> OR = 180, DBP> OR = 100 Last administered on 07/21/16 10:58; Start 07/19/16 at 00:30 Nicardipine HCl/ Sodium Chloride (Cardene Inj/NS 250 ml Inj) 260 ml @ 0 mls/hr TITRATE IV Last administered on 07/19/16 01:32; Start 07/19/16 at 01:15; Stop 07/19/16 at 06:17; Status DC Prochlorperazine Maleate (Compazine) 5 mg Q6H PRN PO NAUSEA OR VOMITING Last administered on 07/21/16 10:32; Start 07/19/16 at 03:30 Miscellaneous Information Patient in critical care unit? Ass... [id number] Last administered on 07/19/16 04:30; Start 07/19/16 at 04:30 Chlorhexidine Gluconate (Chlorhexidine 2% Cloth) 3 pack DAILY@04 TOP Last administered on 07/21/16 03:14; Start 07/20/16 at 04:00; Stop 07/24/16 at 04:01 Chlorhexidine Gluconate (Chlorhexidine 2% Cloth) 3 pack UNSCH PRN TOP HYGIENIC CARE; Start 07/19/16 at 04:30; Stop 07/24/16 at 04:22 Dextrose (D50w (Vial) Inj) 25 ml UNSCH PRN IV PUSH HYPOGLYCEMIA-SEE COMMENTS Last administered on 07/21/16 06:22; Start 07/19/16 at 05:15 Glucagon (Glucagon Inj) 1 mg UNSCH PRN OTHER HYPOGLYCEMIA-SEE COMMENTS; Start 07/19/16 at 05:15 Insulin Aspart (NovoLOG SUPPLEMENTAL SCALE) 1 ACHS SLIDING SCALE SQ Last administered on 07/19/16 11:00; Start 07/19/16 at 07:00 Bethanechol Chloride (Urecholine) 25 mg QID PO Last administered on 07/21/16 08:12; Start 07/19/16 at 09:00 Lisinopril (Prinivil) 20 mg DAILY PO Last administered on 07/21/16 08:12; Start 07/19/16 at 09:00 Metoclopramide HCl (Reglan) 10 mg QID PO Last administered on 07/21/16 08:12; Start 07/19/16 at 09:00 Sucralfate (Carafate) 1 gm QID PO Last administered on 07/21/16 08:12; Start 07/19/16 at 09:00 Morphine Sulfate (Morphine Inj) 2 mg Q3H PRN IV PUSH PAIN SCALE 4 TO 10 Last administered on 07/21/16 08:20; Start 07/19/16 at 05:45 Polyethylene Glycol/ Electrolytes (Colyte Liq) 4,000 ml ONCE ONCE PO Last administered on 07/19/16 17:25; Start 07/19/16 at 16:00; Stop 07/19/16 at 16:01 ; Status DC Polyethylene Glycol/ Electrolytes (Colyte Liq) 4,000 ml ONCE ONCE PO Last administered on 07/20/16 17:08; Start 07/20/16 at 11:15; Stop 07/20/16 at 11:16 ; Status DC Propofol (Diprivan 200 Mg/20 ml Inj) 150 mg STK-MED ONCE IV ; Start 07/20/16 at 09:55; Stop 07/20/16 at 11:55; Status DC Glycerin 4 gm 4 gm ONCE RECTAL Last administered on 07/20/16 20:20; Start at 20:00; Stop 07/20/16 at 23:59; Status DC Potassium Chloride 100 ml @ 50 mls/hr Q2H IV Last administered on 07/21/16 06 :22; Start 07/21/16 at 06:15; Stop 07/21/16 at 10:14; Status DC Magnesium Sulfate/ Dextrose (Magnesium Sulfate 1 Gm Premix) 100 ml @ 100 mls/ hr ONCE ONCE IV ; Start 07/21/16 at 11:00; Stop 07/21/16 at 11:59; Status DC A/P Problem List: (1) Abdominal pain, unspecified site ICD Code: R10.9 Status: Acute (2) Intractable nausea and vomiting ICD Code: R11.2 Status: Acute (3) Hypertensive urgency ICD Code: I16.0 Status: Acute (4) Renal insufficiency ICD Code: N28.9 Status: Acute (5) Dehydration ICD Code: E86.0 Status: Acute (6) Type 2 diabetes mellitus ICD Code: E11.9 Status: Chronic Assessment and Plan Ms. Reed is a 50-year-old female with past medical history of neuropathy, type 2 diabetes mellitus, hypertension, and gastroparesis who presented to the emergency room on 07/18/2016 for evaluation of nausea, vomiting, and diarrhea. The patient also has a colostomy to following partial colectomy though she did not go into great detail regarding why this was needed. Abdominal pain with intractable nausea and vomiting - dark stools +Hemoccult stool concerning for bleed. -GI consulted s/p on 07/20 EGD showing gastritis and colonoscopy showing internal and external hemorrhoid with fecal impaction that was broken up digitally. -repeat colonoscopy today. -on Protonix. continue to trend H/H. -continue to supportive care. Hypertensive urgency - While in the emergency room, the patient had hypertensive urgency with initial blood pressure of 234/112. Blood pressure did not respond to multiple intravenous antihypertensives or by mouth clonidine and subsequently a Cardene drip was initiated with rapid response progressing to hypotension. - Cardene drip d/c'd - She is admitted to the intensive care unit for closer monitoring of blood pressure. -BP has been stable. she can be downgraded. Renal insufficiency most likely related to dehydration - Normal saline at 100 cc per hour - Cr improving. - Avoid nephrotoxins Type 2 diabetes mellitus - Accu-Cheks before meals and at bedtime with low-dose sliding scale NovoLog coverage - Hypoglycemia protocol ordered - Follow trends and blood glucose levels and adjust treatment as needed DVT prophylaxis - SCDs Discharge Planning repeat colonoscopy today. Can be d/c once cleared by GI and nausea/pain controlled. Problem Qualifiers (1) Intractable nausea and vomiting: Qualified Code: R11.2 - Intractable vomiting with nausea, unspecified vomiting type Michelle Ward MD Jul 21, 2016 12:19
[2016-07-21] MEDS ORDERED: PROPOFOL 200 MG/20 ML AMP IV ONE (14:14)
[2016-07-22] VITALS: BP 130/75; PULSE 69; RESP 17; TEMP 96.6; O2SAT 95
[2016-07-22 04:00] VITALS: BP 125/65; PULSE 74; RESP 17; TEMP 97.4; O2SAT 100
[2016-07-22] MEDS: CHLORHEXIDINE GLUCONATE 2 % 1 PACK (2 CLOTHS)(taper/protocol) TOP SCH (04:00)
[2016-07-22] MEDS: SODIUM CHLOR 0.9% 1000 ML INJ 1,000 ML IV SCH ×2 (06:17→16:09)
[2016-07-22] MEDS: INSULIN ASPART SUPPLEMENTAL SCALE SQ SCH ×3 (06:26→16:00)
[2016-07-22] MEDS: MORPHINE SULFATE 4 MG/ML INJ IV PUSH PRN ×2 (06:30→10:54)
[2016-07-22 08:00] VITALS: BP 162/77; PULSE 68; RESP 18; TEMP 97.7; O2SAT 100
[2016-07-22 08:34] LABS: HEMATOCRIT 31.9 % (35.0-46.0); MEAN CELL VOLUME 82.4 FL (80.0-100.0); MEAN CORPUSCULAR HEMOGLOBIN 29.2 PG (27.0-34.0); MEAN CORPUSCULAR HGB CONC 35.4 % (32.0-36.0); PLATELET COUNT 299 TH/MM3 (150-450); RED BLOOD COUNT 3.87 MIL/MM3 (4.00-5.30); RED CELL DISTRIBUTION WIDTH 13.7 % (11.6-17.2); REVIEW FLAG FINAL; WHITE BLOOD COUNT 9.8 TH/MM3 (4.0-11.0)
[2016-07-22 08:45] LABS: BICARBONATE 25.8 MEQ/L (21.0-32.0); POTASSIUM 3.8 MEQ/L (3.5-5.1)
[2016-07-22 08:53] VITALS: PULSE 69
[2016-07-22] MEDS: LISINOPRIL 20 MG TAB PO SCH (09:09)
[2016-07-22] MEDS: SUCRALFATE 1 GM TAB PO SCH ×2 (09:09→14:08)
[2016-07-22] MEDS: BETHANECHOL CHL 25 MG TAB PO SCH ×2 (09:09→14:08)
[2016-07-22] MEDS: METOCLOPRAMIDE HCL 10 MG TAB PO SCH ×2 (09:09→14:08)
--- NOTE | 2016-07-22 09:59 | HHI.GIFU ---
Subjective Remarks Patient resting in bed. Has mild nausea without any vomiting. Mild abdominal cramping. She liquid stool without blood in her colostomy bag. (Roro Kelley) Objective Vitals I&O Vital Signs Date Time Temp Pulse Resp B/P Pulse Ox O2 Delivery O2 Flow Rate FiO2 07/22/16 04:00 97.4 74 17 125/65 100 07/22/16 00:00 96.6 69 17 130/75 95 07/21/16 22:40 97.5 65 17 123/64 100 07/21/16 22:30 66 07/21/16 20:00 98.2 72 15 135/63 97 07/21/16 20:00 72 07/21/16 18:00 73 208/95 07/21/16 16:24 16 07/21/16 16:00 67 07/21/16 16:00 97.7 69 14 171/79 99 07/21/16 15:44 178/80 07/21/16 12:00 69 07/21/16 12:00 98.6 69 14 162/73 99 07/21/16 11:03 188/83 I/O 07/21/16 07/21/16 07/21/16 07/22/16 07/22/16 07/22/16 07:00 15:00 23:00 07:00 15:00 23:00 Intake Total 699 ml 562 ml 1306 ml Output Total 4350 ml 50 ml 1100 ml Balance -3651 ml 512 ml 206 ml Intake Oral 500 ml IV Total 699 ml 562 ml 806 ml Output Urine Total 850 ml 450 ml Stool Total 3500 ml 50 ml 650 ml # Voids 2 2 Laboratory Laboratory Tests Test 07/22/16 07:24 White Blood Count 9.8 Red Blood Count 3.87 Hemoglobin 11.3 Hematocrit 31.9 Mean Corpuscular Volume 82.4 Mean Corpuscular Hemoglobin 29.2 Mean Corpuscular Hemoglobin 35.4 Concent Red Cell Distribution Width 13.7 Platelet Count 299 Mean Platelet Volume 7.3 Sodium Level 136 Potassium Level 3.8 Chloride Level 102 Carbon Dioxide Level 25.8 Anion Gap 8 Blood Urea Nitrogen 13 Creatinine 0.83 Estimat Glomerular Filtration 73 Rate Random Glucose 186 Calcium Level 8.1 Imaging Last Impressions Chest X-Ray 07/18/162002 Signed Impressions: Service Date/Time: Monday, July 18, 2016 20:36 - CONCLUSION: No acute disease. Dusty Buckner MD Physical Exam HEENT: Normocephalic; atraumatic; no jaundice. CHEST: CTA CARDIAC: RRR. ABDOMEN: Soft, nondistended, nontender; no hepatosplenomegaly; bowel sounds are present in all four quadrants. Colostomy with liquid green stool EXTREMITIES: No clubbing, cyanosis, or edema. SKIN: Normal; no rash; no jaundice. ANDROID PROGRAMMER: No focal deficits; alert and oriented times three. (Roro Kelley) Assessment and Plan Plan ASSESSMENT: - Intractable nausea and vomiting. S/P EGD (07/20/16)---> LA Class A esophagitis , mild gastritis in the gastric antrum, retroflexed views revealed no abnormalities. Pathology with gastric mucosa without significant histologic abnormality. No helicobacter pylori-like organisms are prsent (arthur stain). EGD 3 years. Improved. Nausea without vomiting. PPI - Abdominal pain. EGD with esophagitis, gastritis. Incomplete colonoscopy ()---> Fecal impaction, broken up digitally and with the scope, Retroflexed views revealed medium internal hemorrhoids, external hemorrhoids. S/P SSE x 2, Glycerin suppository, Golytely. Plan for repeat colonoscopy today. - Anemia. 11.3/31.9. - Gastroparesis. Nausea without vomiting. Bethanechol, reglan. - DM, RI, HTN, Electrolyte abnormalities per primary Plan - ARLEEN - Add PPI - Add Miralax - Cont. Carafate - Cont. Reglan - Cont. Bethanechol - Supportive care - Rpt EGD 3 years. - GI will sign off, please reconsult as needed - PT seen and examined by Dr. Lopez and myself and this note is written on his behalf (Roro Kelley) Physician Comments Seen and examined with FABRICE, doing better. Advance diet as tolerated . Gi will sign off, reconsult as needed. Thank you (Lety Lopez MD) Roro Kelley Jul 22, 2016 09:59 Lety Lopez MD Jul 22, 2016 13:33
[2016-07-22] MEDS ORDERED: CARA1TAB6 PO (11:35)
[2016-07-22] MEDS ORDERED: POLY17S PO (11:35)
[2016-07-22] MEDS ORDERED: BETH25 PO (11:35)
[2016-07-22] MEDS ORDERED: METO10TA PO (11:35)
[2016-07-22] MEDS ORDERED: LISI-515 PO (11:35)
[2016-07-22] MEDS ORDERED: PROT40TA PO (11:36)
--- NOTE | 2016-07-22 11:37 | HHI.PR ---
Subjective Remarks Follow-up Intractable nausea and vomiting 07/22/16-patient seen and examined, tolerated by mouth without any competition nausea this morning. No acute event overnight and currently afebrile. Objective Vitals Vital Signs Date Time Temp Pulse Resp B/P Pulse Ox O2 Delivery O2 Flow Rate FiO2 07/22/16 08:00 97.7 68 18 162/77 100 07/22/16 04:00 97.4 74 17 125/65 100 07/22/16 00:00 96.6 69 17 130/75 95 07/21/16 22:40 97.5 65 17 123/64 100 07/21/16 22:30 66 07/21/16 20:00 98.2 72 15 135/63 97 07/21/16 20:00 72 07/21/16 18:00 73 208/95 07/21/16 16:24 16 07/21/16 16:00 67 07/21/16 16:00 97.7 69 14 171/79 99 07/21/16 15:44 178/80 07/21/16 12:00 69 07/21/16 12:00 98.6 69 14 162/73 99 I/O 07/21/16 07/21/16 07/21/16 07/22/16 07/22/16 07/22/16 07:00 15:00 23:00 07:00 15:00 23:00 Intake Total 699 ml 562 ml 1306 ml Output Total 4350 ml 50 ml 1100 ml Balance -3651 ml 512 ml 206 ml Intake Oral 500 ml IV Total 699 ml 562 ml 806 ml Output Urine Total 850 ml 450 ml Stool Total 3500 ml 50 ml 650 ml # Voids 2 2 Result Diagram: 07/22/1624 07/22/1624 Imaging Last Impressions Chest X-Ray 07/18/162002 Signed Impressions: Service Date/Time: Monday, July 18, 2016 20:36 - CONCLUSION: No acute disease. Dusty Buckner MD Objective Remarks GENERAL: NAD SKIN: Warm and dry. HEAD: Normocephalic. EYES: No scleral icterus. No injection or drainage. NECK: Supple, trachea midline. No JVD or lymphadenopathy. CARDIOVASCULAR: Regular rate and rhythm without murmurs, gallops, or rubs. RESPIRATORY: Breath sounds equal bilaterally. No accessory muscle use. GASTROINTESTINAL: Abdomen soft, non-tender, nondistended. MUSCULOSKELETAL: No cyanosis, or edema. BACK: Nontender without obvious deformity. No CVA tenderness. A/P Problem List: (1) Abdominal pain, unspecified site ICD Code: R10.9 Status: Acute (2) Intractable nausea and vomiting ICD Code: R11.2 Status: Acute (3) Hypertensive urgency ICD Code: I16.0 Status: Acute (4) Renal insufficiency ICD Code: N28.9 Status: Acute (5) Dehydration ICD Code: E86.0 Status: Acute (6) Type 2 diabetes mellitus ICD Code: E11.9 Status: Chronic Assessment and Plan 50-year-old female with Abdominal pain with intractable nausea and vomiting - dark stools +Hemoccult stool concerning for bleed. -GI consulted s/p on 07/20 EGD showing gastritis and colonoscopy showing internal and external hemorrhoid with fecal impaction that was broken up digitally. -repeat colonoscopy 07/21/16. -on Protonix. continue to trend H/H. -continue to supportive care. Hypertensive urgency: Resolved, status post Cardene drip and currently on lisinopril Renal insufficiency most likely related to dehydration-resolved. - Normal saline at 100 cc per hour - Cr improving. - Avoid nephrotoxins Type 2 diabetes mellitus - Accu-Cheks before meals and at bedtime with low-dose sliding scale NovoLog coverage - Hypoglycemia protocol ordered - Follow trends and blood glucose levels and adjust treatment as needed DVT prophylaxis - SCDs Problem Qualifiers (1) Intractable nausea and vomiting: Qualified Code: R11.2 - Intractable vomiting with nausea, unspecified vomiting type Lj Tafoya MD Jul 22, 2016 11:37
[2016-07-22] MEDS ORDERED: METF500T PO (11:46)
--- NOTE | 2016-07-22 11:48 | HHI.DS ---
Discharge Summary Admission Date Jul 19, 2016 at 01:08 Discharge Date: Jul 22, 2016 Admitting Diagnosis intractable nausea and vomiting, renal insufficiency, abdominal pain (1) Abdominal pain, unspecified site ICD Code: R10.9 (2) Intractable nausea and vomiting ICD Code: R11.2 (3) Hypertensive urgency ICD Code: I16.0 (4) Renal insufficiency ICD Code: N28.9 (5) Dehydration ICD Code: E86.0 (6) Type 2 diabetes mellitus ICD Code: E11.9 Procedures none Brief History - From Admission Ms. Reed is a 50-year-old female with past medical history of neuropathy, type 2 diabetes mellitus, hypertension, and gastroparesis who presented to the emergency room on 07/18/2016 for evaluation of nausea, vomiting, and diarrhea. The patient also has a colostomy to following partial colectomy though she did not go into great detail regarding why this was needed. The patient is seen in the emergency room. She reports that she has been experiencing severe nausea/vomiting, and diarrhea for about 3 - 4 days accompanied by abdominal pain. While in the emergency room, the patient had hypertensive urgency with initial blood pressure of 234/112. Blood pressure did not respond to multiple intravenous antihypertensives or by mouth clonidine and subsequently a Cardene drip was initiated with rapid response progressing to hypotension. She is going to be admitted to the intensive care unit for closer monitoring of blood pressure. CBC/BMP: 07/22/16 0724 07/22/16 0724 Significant Findings Laboratory Tests Test 07/20/16 07/21/16 07/22/16 05:21 03:42 07:24 Red Blood Count 3.88 MIL/MM3 3.75 MIL/MM3 3.87 MIL/MM3 (4.00-5.30) (4.00-5.30) (4.00-5.30) Hemoglobin 11.5 GM/DL 11.2 GM/DL 11.3 GM/DL (11.6-15.3) (11.6-15.3) (11.6-15.3) Hematocrit 32.5 % 31.0 % 31.9 % (35.0-46.0) (35.0-46.0) (35.0-46.0) Potassium Level 3.3 MEQ/L 3.1 MEQ/L (3.5-5.1) (3.5-5.1) Estimat Glomerular Filtration 66 ML/MIN (>89) 83 ML/MIN (>89) 73 ML/MIN (>89) Rate Calcium Level 7.6 MG/DL 7.8 MG/DL 8.1 MG/DL (8.5-10.1) (8.5-10.1) (8.5-10.1) Mean Corpuscular Hemoglobin 36.3 % Concent (32.0-36.0) Random Glucose 62 MG/DL 186 MG/DL (74-106) (74-106) Magnesium Level 1.3 MG/DL (1.5-2.5) Imaging Last Impressions Chest X-Ray 07/18/162002 Signed Impressions: Service Date/Time: Monday, July 18, 2016 20:36 - CONCLUSION: No acute disease. Dusty Buckner MD PE at Discharge GENERAL: NAD SKIN: Warm and dry. HEAD: Normocephalic. EYES: No scleral icterus. No injection or drainage. NECK: Supple, trachea midline. No JVD or lymphadenopathy. CARDIOVASCULAR: Regular rate and rhythm without murmurs, gallops, or rubs. RESPIRATORY: Breath sounds equal bilaterally. No accessory muscle use. GASTROINTESTINAL: Abdomen soft, non-tender, nondistended. MUSCULOSKELETAL: No cyanosis, or edema. BACK: Nontender without obvious deformity. No CVA tenderness. Hospital Course Abdominal pain with intractable nausea and vomiting - dark stools +Hemoccult stool concerning for bleed. -GI consulted s/p on 07/20 EGD showing gastritis and colonoscopy showing internal and external hemorrhoid with fecal impaction that was broken up digitally. -repeat colonoscopy 07/21/16. -on Protonix. continue to trend H/H. -continue to supportive care. Hypertensive urgency: Resolved, status post Cardene drip and currently on lisinopril Renal insufficiency most likely related to dehydration-resolved with IV fluid hydration Type 2 diabetes mellitus - Accu-Cheks before meals and at bedtime with low-dose sliding scale NovoLog coverage, however she will be discharged home on metformin 500 mg by mouth twice a day DVT prophylaxis - SCDs Pt Condition on Discharge: Stable Discharge Disposition: Discharge Home Discharge Time: <= 30 minutes Discharge Instructions DIET: Follow Instructions for: Diabetic Diet Activities you can perform: Regular-No Restrictions Follow up Referrals: Gastroenterology PCP Follow-up - 1 Week New Medications: Pantoprazole (Protonix) 40 Mg Tab 40 MG PO DAILY Reflux #30 Ref 0 TAB Bethanechol (Urecholine) 25 Mg Tab 25 MG PO QID Urinary Symptom Managemen #120 TAB Lisinopril (Lisinopril) 20 Mg Tab 20 MG PO DAILY Blood Pressure Management #30 TAB Metoclopramide (Metoclopramide) 10 Mg Tab 10 MG PO QID Bowel Management #120 TAB Polyethylene Glycol 3350 Powder (Polyethylene Glycol 3350 Powder) 17 Gm Pow 17 GM PO DAILY Bowel Management Days 30 GM Sucralfate (Carafate) 1 Gm Tab 1 GM PO QID Bowel Management #120 TAB Continued Medications: Butalbital-Acetaminophen (Butalbital-Acetaminophen) 50-325 Mg Tab 1-2 TAB PO Q4HR Do not exceed 6 tablets per day. PRN HEADACHE Ref 0 TAB Tamsulosin (Tamsulosin) 0.4 Mg Cap 0.4 MG PO HS Manage Prostate Problems #30 Ref 0 CAP Discontinued Medications: Bethanechol (Bethanechol) 25 Mg Tab 25 MG PO QID Urinary Symptom Managemen Ref 0 TAB Lisinopril (Lisinopril) 20 Mg Tab 20 MG PO DAILY #30 Ref 0 TAB Metoclopramide (Metoclopramide) 10 Mg Tab 10 MG PO QID Ref 0 TAB Ondansetron (Ondansetron) 8 Mg Tab 8 MG PO TID Nausea/Vomiting #12 Ref 1 TAB Sucralfate (Sucralfate) 1 Gm Tab 1 GM PO QID on empty stomach Duodenal ulcer #120 Ref 0 TAB Lj Tafoya MD Jul 22, 2016 11:48
[2016-07-22 12:00] VITALS: BP 148/72; PULSE 70; RESP 18; TEMP 98.2; O2SAT 99
--- NOTE | 2016-07-22 12:21 | GIPROC ---
[facility] [address] [facility]. [facility], [address] COLONOSCOPY PROCEDURE REPORT EXAM DATE: 07/21/2016 PATIENT NAME: Eden Reed MR #: [id number] BIRTHDATE: 1965 ENDOSCOPIST: Lety Lopez MD ORDER #: [id number] CAMPAIGN ASSOCIATE: Getachew Khan and Pedro Sharma STATUS: inpatient INDICATIONS: The patient is a 50 yr old female here for a colonoscopy due to abdominal pain PROCEDURE PERFORMED: Diagnostic colonoscopy via stoma MEDICATIONS: Per Anesthesia and None. PREP QUALITY: poor PREP TYPE:GoLytely ESTIMATED BLOOD LOSS: None CONSENT: The patient understands the risks and benefits of the procedure and understands that these risks include, but are not limited to: sedation, allergic reaction, infection, perforation and/or bleeding. Alternative means of evaluation and treatment include, among others: physical exam, x-rays, and/or surgical intervention. The patient elects to proceed with this endoscopic procedure. medical equipment was checked for proper function. Hand hygiene and appropriate measures for infection prevention was taken. After the risks, benefits and alternatives of the procedure were thoroughly explained, Informed consent was verified, confirmed and timeout was successfully executed by the treatment team. A digital exam was not performed The Pentax [id number] and [id number] endoscope was introduced through the anus and advanced to the cecum, which was identified by both the appendix and ileocecal valve. The instrument was then slowly withdrawn as the colon was fully examined. COLON FINDINGS: SCOPE ADVANCED THROUGH THE COLOSTOMY TO THE CECUM. VERY POOR PREP. The scope was then completely withdrawn from the patient and the procedure terminated. ADVERSE EVENTS: There were no complications. IMPRESSIONS: 1. XCOPE ADVANCED THROUGH THE COLOSTOMY TO THE CECUM. VERY POOR PREP 2. Was not performed RECOMMENDATIONS: Continue surveillance RECALL: Return 5 years Colonoscopy Lety Lopez MD eSigned: Lety Lopez MD 07/21/2016 2:24 PM cc: [id number]
--- NOTE | 2016-07-22 14:16 | HHI.PR ---
Addendum to Inpatient Note Addendum Reason: Additional Documentation Additional Information Prior to discharge, I was informed by Malathi sesay that patient was already on coverage for diabetes at home me however this was not answer in her medication list at admission. Therefore will discontinue metformin, patient's has been advised by nurse Gerda to resume her coverage for diabetes type 2 Lj Tafoya MD Jul 22, 2016 14:16
[2016-07-22] MEDS ORDERED: PANTOPRAZOLE SOD 40 MG DELAYED RELEASE TAB PO SCH (21:00)
[2016-07-23] MEDS ORDERED: POLYETHYLENE GLYCOL 17 GM PKG PO SCH (09:00)
== END 2016-07-22 16:15 | disposition home or self-care (01) | DRG 74 ==
LOC: NEPC 19:56 → NEDA 21:50 → OBSVTOIN 07-19 01:08 → HIMN 07-19 04:00 → HOCB 07-21 22:15
PROVIDERS: ADMIT Hospitalist; ATTEND Hospitalist
PROC: 0DB68ZX Excision of Stomach, Via Natural or Artificial Opening Endoscopic, Diagnostic (ICD-10-PCS; principal; 2016-07-20 08:55)
PROC: 0DJD8ZZ Inspection of Lower Intestinal Tract, Via Natural or Artificial Opening Endoscopic (ICD-10-PCS; 2016-07-20 08:55)
PROC: 0DJD8ZZ Inspection of Lower Intestinal Tract, Via Natural or Artificial Opening Endoscopic (ICD-10-PCS; 2016-07-21)
DX: E11.43 Type 2 diabetes mellitus with diabetic autonomic (poly)neuropathy (principal); N17.9 Acute kidney failure, unspecified; K31.84 Gastroparesis; E86.0 Dehydration; Z93.3 Colostomy status; H91.92 Unspecified hearing loss, left ear; F17.210 Nicotine dependence, cigarettes, uncomplicated; I16.0 Hypertensive urgency; K29.70 Gastritis, unspecified, without bleeding; K56.41 Fecal impaction; K64.8 Other hemorrhoids
CPT/HCPCS: 71010; 74020; 74176; 76937; 80048; 80053; 81001; 82550; 82948; 83690; 83735; 84484; 84703; 85025; 85027; 87641; 88305; 88312; 93005; 96361; 96374; 96375; 96376; C9113; G0378; J0500; J1170; J1815; J2270; J2405; J2765; J3475; J3480; J7030; J7050; Q0164

== ENCOUNTER 2016-07-29 19:41 | Emergency (ER) | payer MEDICAID ==
[~2016-07-29] VITALS: Ht 172.7 cm; Wt 65.0 kg
[~2016-07-29 19:41] MED LIST changes: +BETH25 PO; -BETH25TA2 PO; +BUTA1TAB30 PO; -HYDR-3533 PO; +LISI-515 PO; +METO10TA PO; +POLY17S PO; +PROT40TA PO; -REGL10TA5 PO; +TAMS0.4C4 PO
[2016-07-29 19:47] VITALS: BP 160/95; PULSE 93; RESP 20; TEMP 98.9; O2SAT 97
[2016-07-29] MEDS ORDERED: SODIUM CHLOR 0.9% 1000 ML INJ 1,000 ML IV SCH (20:29)
[2016-07-29] MEDS ORDERED: SODIUM CHLORIDE 0.9% FLUSH 10 ML FLUSH IV FLUSH PRN (20:30)
--- NOTE | 2016-07-29 20:33 | PD ---
HPI Chief Complaint: Abdominal Pain Time Seen by Provider: 20:30 Travel History International Travel<30 days: No Contact w/Intl Traveler<30days: No Traveled to known affect area: No History of Present Illness HPI 50-year-old Old female with a past medical history of neuropathy, type 2 diabetes mellitus, hypertension, and gastroparesis. Patient presents to the emergency department for evaluation of abdominal pain that started this morning. Patient was recently discharged from the hospital July 22, 2016 for intractable nausea and vomiting. She reports that she was feeling much better since being discharged. However, this morning, she woke up with severe abdominal pain, vomiting 3. She states she also had diarrhea through her colostomy bag and thought she may have some blood in her stool. The patient denies any fevers. She does report some epigastric pain as well as left sided abdominal pain. Patient has a colostomy following a partial colectomy in 2013, although she does not give much detail of why she has a colostomy. When asked if she has any chest pain. She states that she has some minor chest pain and points to her epigastric region of her abdomen. PFSH Past Medical History Diabetes: Yes Diminished Hearing: No Gastrointestinal Disorders: Yes (GASTROPORESIS) Hypertension: Yes Neurologic: Yes (NEUROPATHY) Reproductive: No Respiratory: No Menopausal: Yes Past Surgical History Section: Yes (X3) Other Surgery: Yes (COLOSTOMY, RT HIP TUMOR REMOVED) Social History Alcohol Use: No Tobacco Use: Yes (1PPD) Substance Use: No Allergies-Medications (Allergen,Severity, Reaction): Coded Allergies: Robaxin (Verified Allergy, Unknown, 07/29/16) Reported Meds & Prescriptions Reported Meds & Active Scripts Active Protonix (Pantoprazole Sodium) 40 Mg Tab 40 Mg PO DAILY Carafate (Sucralfate) 1 Gm Tab 1 Gm PO QID Polyethylene Glycol 3350 Powder (Polyethylene Glycol) 17 Gm Pow 17 Gm PO DAILY 30 Days Metoclopramide (Metoclopramide HCl) 10 Mg Tab 10 Mg PO QID Lisinopril 20 Mg Tab 20 Mg PO DAILY Urecholine (Bethanechol Chloride) 25 Mg Tab 25 Mg PO QID Reported Metformin (Metformin HCl) 500 Mg Tab 500 Mg PO BIDPC With meals Butalbital-Acetaminophen 50-325 Mg Tab 1-2 Tab PO Q4HR PRN Do not exceed 6 tablets per day. Tamsulosin (Tamsulosin HCl) 0.4 Mg Cap 0.4 Mg PO HS Review of Systems Except as stated in HPI: all other systems reviewed are Neg Physical Exam Narrative GENERAL: Well-developed well-nourished female patient, afebrile. SKIN: Warm and dry. HEAD: Normocephalic. Atraumatic. EYES: No scleral icterus. No injection or drainage. NECK: Supple, trachea midline. No JVD or lymphadenopathy. CARDIOVASCULAR: Regular rate and rhythm without murmurs, gallops, or rubs. RESPIRATORY: Breath sounds equal bilaterally. No accessory muscle use. Lungs sounds are clear to auscultation. GASTROINTESTINAL: Abdomen soft and nondistended. Patient has colostomy noted to left abdomen. She has tenderness over the left lower quadrant, left upper quadrant, epigastric region. Hemoccult is negative. MUSCULOSKELETAL: No cyanosis, or edema. BACK: Nontender without obvious deformity. No CVA tenderness. Data Data Last Documented VS Vital Signs Date Time Temp Pulse Resp B/P Pulse Ox O2 Delivery O2 Flow Rate FiO2 07/29/16 21:24 81 18 127/79 96 Room Air 07/29/16 19:47 98.9 Orders Complete Blood Count With Diff (07/29/16 20:29) Comprehensive Metabolic Panel (07/29/16 20:29) Lipase (07/29/16 20:29) Urinalysis - C+S If Indicated (07/29/16 20:29) Ct Abd/Pel W Iv Contrast(Rout) (07/29/16 20:29) Iv Access Insert/Monitor (07/29/16 20:29) Ecg Monitoring (07/29/16 20:29) Oximetry (07/29/16 20:29) Sodium Chlor 0.9% 1000 Ml Inj (Ns 1000 M (07/29/16 20:29) Sodium Chloride 0.9% Flush (Ns Flush) (07/29/16 20:30) Electrocardiogram (07/29/16 20:29) Ed Urine Pregnancytest Poc (07/29/16 20:29) Creatine Kinase (Cpk) (07/29/16 20:33) Troponin I (07/29/16 20:33) Ondansetron Inj (Zofran Inj) (07/29/16 20:45) Morphine Inj (Morphine Inj) (07/29/16 21:00) [facility] Medical Decision Making Medical Screen Exam Complete: Yes Emergency Medical Condition: Yes Medical Record Reviewed: Yes Differential Diagnosis Small bowel obstruction versus diverticulitis versus gastroparesis versus pancreatitis Narrative Course 50-year-old female presents to the emergency department for evaluation of abdominal pain, vomiting, possible R colostomy that started this morning. Patient was recently discharged from the hospital stay she was doing fine until this morning. Hemoccult is negative. EKG, CBC, CMP, lipase, CK, troponin, UA, UPT are ordered and pending. CT the abdomen/pelvis with IV contrast is ordered and pending. Dr. Khoury resumed care and disposition of patient. HemaPrompt Point of Care Internal Pos. & Neg. Controls: Passed Fecal Specimen Occult Blood: Negative Hiwot Herrera Jul 29, 2016 20:33
[2016-07-29] MEDS ORDERED: ONDANSETRON HCL 4 MG/2 ML VIAL IV PUSH ONE (20:45)
[2016-07-29] MEDS ORDERED: MORPHINE SULFATE 8 MG/ML INJ IV PUSH ONE (21:00)
[2016-07-29 21:24] VITALS: BP 127/79; PULSE 81; RESP 18; O2SAT 96
[2016-07-29] MEDS ORDERED: METF500T PO (21:27)
--- NOTE | 2016-07-29 21:36 | PD ---
Physical Exam Narrative I, Dr. Khoury, have reviewed the advance practice practitioner's documentation and am in agreement, met with the patient face to face, made the diagnosis, and the medical decision making was done by me. *My assessment and Findings: Obstruction vs. colitis vs. gastroenteritis vs. gastroparesis 50yo F with PMH of neuropathy, DM, HTN, gastroparesis presents to the ED with c/ o abdominal pain, vomiting and diarrhea today. Pt was just here for intractable vomiting and discharged 07/22/16. Pt states abdominal pain is around colostomy and does have some urinary complaints. Abd: soft, +TTP Left lower abdomen, suprapubic region. +Brown stool in colostomy bag. Pt reevaluated after 6mg IV morphine and states abdominal pain has improved. Abdominal exam is now soft, nontender, nondistended. No rebound tenderness or guarding. Labs reviewed, mild leukocytosis at 13.7. H/H 11/31.9 which is her baseline. BUN/creatinine mildly elevated at 24/1.09. Glucose elevated at 275. No increased anion gap. CO2 27.2. Troponin negative. Pt denies any chest pain to me. UA positive for small leukocyte. WBC 37. Pt given ceftriaxone 1gm IV. CTa/p showed prior left hemicolectomy with left lower quadrant ostomy. No acute abnormality involving the abdomen or pelvis. 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 However, pt does not have clinical findings consistent with left sided buttock or lower extremity claudication. Discussed with vascular surgeon Dr. Peace and states she can follow up as outpatient. Also informed pt of this. Pt is tolerating PO now after zofran and return precautions given. Data Data Last Documented VS Vital Signs Date Time Temp Pulse Resp B/P Pulse Ox O2 Delivery O2 Flow Rate FiO2 07/29/16 23:41 74 18 143/72 96 Room Air 07/29/16 19:47 98.9 Orders Complete Blood Count With Diff (07/29/16 20:29) Comprehensive Metabolic Panel (07/29/16 20:29) Lipase (07/29/16 20:29) Urinalysis - C+S If Indicated (07/29/16 20:29) Ct Abd/Pel W Iv Contrast(Rout) (07/29/16 20:29) Iv Access Insert/Monitor (07/29/16 20:29) Ecg Monitoring (07/29/16 20:29) Oximetry (07/29/16 20:29) Sodium Chlor 0.9% 1000 Ml Inj (Ns 1000 M (07/29/16 20:29) Sodium Chloride 0.9% Flush (Ns Flush) (07/29/16 20:30) Electrocardiogram (07/29/16 20:29) Ed Urine Pregnancytest Poc (07/29/16 20:29) Creatine Kinase (Cpk) (07/29/16 20:33) Troponin I (07/29/16 20:33) Ondansetron Inj (Zofran Inj) (07/29/16 20:45) Morphine Inj (Morphine Inj) (07/29/16 21:00) Urine Culture (07/29/16 21:50) Ceftriaxone Inj (Rocephin Inj) (07/29/16 22:30) Iohexol 350 Inj (Omnipaque 350 Inj) (07/29/16 23:07) Labs Laboratory Tests Test 07/29/16 21:50 White Blood Count 13.7 TH/MM3 Red Blood Count 3.88 MIL/MM3 Hemoglobin 11.0 GM/DL Hematocrit 31.9 % Mean Corpuscular Volume 82.3 FL Mean Corpuscular Hemoglobin 28.5 PG Mean Corpuscular Hemoglobin 34.6 % Concent Red Cell Distribution Width 14.3 % Platelet Count 413 TH/MM3 Mean Platelet Volume 6.8 FL Neutrophils (%) (Auto) 70.0 % Lymphocytes (%) (Auto) 22.7 % Monocytes (%) (Auto) 5.9 % Eosinophils (%) (Auto) 0.6 % Basophils (%) (Auto) 0.8 % Neutrophils # (Auto) 9.6 TH/MM3 Lymphocytes # (Auto) 3.1 TH/MM3 Monocytes # (Auto) 0.8 TH/MM3 Eosinophils # (Auto) 0.1 TH/MM3 Basophils # (Auto) 0.1 TH/MM3 CBC Comment DIFF FINAL Differential Comment Urine Color LIGHT-YELLOW Urine Turbidity HAZY Urine pH 7.0 Urine Specific [place] 1.008 Urine Protein 300 mg/dL Urine Glucose (UA) 1000 mg/dL Urine Ketones NEG mg/dL Urine Occult Blood SMALL Urine Nitrite NEG Urine Bilirubin NEG Urine Urobilinogen LESS THAN 2.0 MG/DL Urine Leukocyte Esterase SMALL Urine RBC 26 /hpf Urine WBC 37 /hpf Urine Squamous Epithelial 3 /hpf Cells Urine Bacteria RARE /hpf Microscopic Urinalysis Comment CULTURE INDICATED Sodium Level 132 MEQ/L Potassium Level 4.3 MEQ/L Chloride Level 98 MEQ/L Carbon Dioxide Level 27.2 MEQ/L Anion Gap 7 MEQ/L Blood Urea Nitrogen 24 MG/DL Creatinine 1.09 MG/DL Estimat Glomerular Filtration 53 ML/MIN Rate Random Glucose 275 MG/DL Calcium Level 8.8 MG/DL Total Bilirubin 0.2 MG/DL Aspartate Amino Transf 10 U/L (AST/SGOT) Alanine Aminotransferase 10 U/L (ALT/SGPT) Alkaline Phosphatase 69 U/L Total Creatine Kinase 18 U/L Troponin I LESS THAN 0.02 NG/ML Total Protein 5.6 GM/DL Albumin 2.1 GM/DL Lipase 220 U/L MDM Supervised Visit with ELISSA: Yes Interpretation(s) EKG: NSR 87bpm. Normal axis. No ST segment elevation or depression. Peaked T wave V3, V4. Q wave aVL. 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 Patient Instructions: General Instructions Departure Forms: Tests/Procedures Additional Instruction: Please follow up with your PMD regarding your UTI. Please call Dr. Peace's office for appointment to follow up with stenosis in iliac artery that was found incidentally on the CT abdomen and pelvis. Med/Other Pt SpecificInfo: Prescription(s) given Scripts Acetaminophen (Acetaminophen Extra Strength)500 Mg Ytu509 Mg PO Q6H PRN (PAIN SCALE 1 TO 4) #20 TAB Ref 0 Prov:Maira Khoury 07/30/16 Ondansetron Odt (Zofran Odt)4 Mg Tab4 Mg SL Q8HR PRN (Nausea/Vomiting) #7 TAB Ref 0 Prov:Maira Khoury 07/30/16 Disposition: 01 DISCHARGE HOME Condition: Stable Maira Khoury DO Jul 29, 2016 21:36
[2016-07-29 22:08] LABS: AUTOMATED NEUTROPHIL # 9.6 TH/MM3 (1.8-7.7); BACTERIA, URINE RARE /hpf; BASOPHIL # 0.1 TH/MM3 (0-0.2); BASOPHIL % 0.8 % (0.0-2.0); BLOOD, URINE SMALL (NEG); COMMENT (UR) CULTURE INDICATED; CULTURE IF INDICATED CULTURE INDICATED; EOSINOPHIL # 0.1 TH/MM3 (0-0.4); EOSINOPHIL % 0.6 % (0.0-4.0); GLUCOSE,URINE 1000 mg/dL (NEG); HEMATOCRIT 31.9 % (35.0-46.0); HEMO FLAGS DIFF FINAL; KETONE, URINE NEG (NEG); LYMPH % 22.7 % (9.0-44.0); LYMPHOCYTE # 3.1 TH/MM3 (1.0-4.8); MEAN CELL VOLUME 82.3 FL (80.0-100.0); MEAN CORPUSCULAR HEMOGLOBIN 28.5 PG (27.0-34.0); MEAN CORPUSCULAR HGB CONC 34.6 % (32.0-36.0); MONO % 5.9 % (0.0-8.0); NITRITE,URINE NEG (NEG); PLATELET COUNT 413 TH/MM3 (150-450); RED BLOOD COUNT 3.88 MIL/MM3 (4.00-5.30); RED CELL DISTRIBUTION WIDTH 14.3 % (11.6-17.2); SQUAMOUS EPITHELIAL CELL URINE 3 /hpf (0-5); URINE COLOR LIGHT-YELLOW (YELLW/STRAW); WHITE BLOOD COUNT 13.7 TH/MM3 (4.0-11.0)
[2016-07-29 22:24] VITALS: BP 147/71; PULSE 78; RESP 18; O2SAT 95
[2016-07-29 22:29] LABS: ANION GAP 7 MEQ/L (5-15); AST (GOT) 10 U/L (15-37); BICARBONATE 27.2 MEQ/L (21.0-32.0); BLOOD UREA NITROGEN 24 MG/DL (7-18); CHLORIDE 98 MEQ/L (98-107); GLOMERULAR FILTRATION RATE 53 ML/MIN (>89); POTASSIUM 4.3 MEQ/L (3.5-5.1); SODIUM (NA) 132 MEQ/L (136-145)
[2016-07-29] MEDS ORDERED: cefTRIAXone INJ 1,000 MG in SODIUM CHLORIDE 0.9% INJ 100 ML IV ONE (22:30)
[2016-07-29 22:33] LABS: ALKALINE PHOSPHATASE 69 U/L (45-117); ALT (GPT) 10 U/L (10-53); TOTAL BILIRUBIN ADULT 0.2 MG/DL (0.2-1.0)
[2016-07-29 22:37] LABS: CREATINE KINASE 18 U/L (26-192)
[2016-07-29] MEDS ORDERED: IOHEXOL 350 MG/ML 10 ML VIAL (for RAD DIAG) IV ONE (23:07)
--- NOTE | 2016-07-29 23:29 | RADRPT ---
EXAM DATE/TIME: 07/29/2016 23:03 [facility] COMPARISON: No previous studies available for comparison. INDICATIONS : Left lower quadrant pain. Blood in colostomy. IV CONTRAST: 80 cc Omnipaque 350 (iohexol) IV ORAL CONTRAST: No oral contrast ingested. RADIATION DOSE: 5.02 CTDIvol (mGy) MEDICAL HISTORY : Gastroparesis. Hypertension. Diabetes mellitus type 2. SURGICAL HISTORY : Colostomy. section. ENCOUNTER: Initial ACUITY: 1 day PAIN SCALE: 10/10 LOCATION: Left lower quadrant abdomen TECHNIQUE: Volumetric scanning of the abdomen and pelvis was performed. Using automated exposure control and ad justment of the mA and/or kV according to patient size, radiation dose was kept as low as reasonably achievable to obtain optimal diagnostic quality images. FINDINGS: LOWER LUNGS: The visualized lower lungs are clear. LIVER: Homogeneous density without lesion. There is no dilation of the biliary tree. No calcified gallston es. SPLEEN: Normal size without lesion. PANCREAS: Within normal limits. KIDNEYS: Normal in size and shape. There is no mass, stone or hydronephrosis. ADRENAL GLANDS: Within normal limits. VASCULAR: Diffuse atherosclerotic change involving the abdominal aorta and inflow vessels. Suspected hemodynami delmy significant stenosis involving the left common iliac artery. BOWEL/MESENTERY: Prior left hemicolectomy changes with left lower quadrant ostomy. No dilated loops of bowel. No free air or free fluid. No inflammatory change observed. Stomach is decompressed but grossly unremarkable. ABDOMINAL WALL: Within normal limits. RETROPERITONEUM: There is no lymphadenopathy. BLADDER: No wall thickening or mass. REPRODUCTIVE: Within normal limits. INGUINAL: There is no lymphadenopathy or hernia. MUSCULOSKELETAL: Within normal limits for patient age. CONCLUSION: 1. Prior left hemicolectomy with left lower quadrant ostomy. 2. 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 Clinical evaluation for left -sided buttock or lower extremity claudication suggested. 3. No acute abnormality involving the abdomen or pelvis. Navarro Montes Jr., MD on July 29, 2016 at 23:20 Board Certified Radiologist. This report was verified electronically.
[2016-07-29 23:41] VITALS: BP 143/72; PULSE 74; RESP 18; O2SAT 96
[2016-07-30] MEDS ORDERED: ACET500T36 PO (00:32)
[2016-07-30] MEDS ORDERED: ZOFR4TAB3 SL (00:32)
[2016-07-30 00:35] VITALS: BP 150/71
--- NOTE | 2016-07-31 11:09 | EKG ---
Date Performed: 07/29/2016 Time Performed: 21:14:08 PTAGE: 50 years EKG: Sinus rhythm BORDERLINE RIGHT AXIS DEVIATION BORDERLINE ECG PREVIOUS TRACING : 07/18/2016 20.41 DOCTOR: Rob Recio Interpretating Date/Time 07/31/2016 11:05:10
[2016-07-31] MEDS ORDERED: MACR100C2 PO (13:09)
== END 2016-07-30 01:28 | disposition home or self-care (01) ==
LOC: NEPA 19:41
DX: N39.0 Urinary tract infection, site not specified (principal); B96.89 Other specified bacterial agents as the cause of diseases classified elsewhere; I70.8 Atherosclerosis of other arteries; R10.13 Epigastric pain; I10 Essential (primary) hypertension; F17.200 Nicotine dependence, unspecified, uncomplicated; E11.43 Type 2 diabetes mellitus with diabetic autonomic (poly)neuropathy; K31.84 Gastroparesis; Z79.84 Long term (current) use of oral hypoglycemic drugs; Z93.3 Colostomy status
CPT/HCPCS: 74177; 80053; 81001; 82550; 83690; 84484; 84703; 85025; 87086; 93005; 96361; 96374; 96375; 99285; J0696; J2270; J2405; J7030; Q9967

== ENCOUNTER 2016-07-31 09:23 | Emergency (ER) | payer MEDICAID ==
[~2016-07-31] VITALS: Ht 167.6 cm; Wt 62.0 kg
[~2016-07-31 09:23] MED LIST changes: +ACET500T36 PO; +METF500T PO; +ZOFR4TAB3 SL
[2016-07-31 09:34] VITALS: PULSE 89; RESP 18; TEMP 98.6; O2SAT 97
[2016-07-31] MEDS ORDERED: SODIUM CHLOR 0.9% 1000 ML INJ 1,000 ML IV SCH (09:39)
[2016-07-31 09:41] LABS: MEAN CORPUSCULAR HGB CONC 36.1 % (32.0-36.0)
[2016-07-31] MEDS ORDERED: ONDANSETRON HCL 4 MG/2 ML VIAL IVP ONE (09:45)
[2016-07-31] MEDS ORDERED: MORPHINE SULFATE 4 MG/ML INJ IV PUSH ONE (09:45)
[2016-07-31] MEDS ORDERED: SODIUM CHLORIDE 0.9% FLUSH 10 ML FLUSH IV FLUSH PRN (09:45)
--- NOTE | 2016-07-31 10:02 | PD ---
HPI Chief Complaint: Abdominal Pain Time Seen by Provider: 09:39 Travel History International Travel<30 days: No Contact w/Intl Traveler<30days: No Traveled to known affect area: No History of Present Illness HPI This is a 50-year-old female history diabetes mellitus, colostomy, recently diagnosed UTI, presents today with complaints of dysuria and right sided flank pain. The patient denies any fevers, chills. She denies any nausea vomiting. The patient also feels as though her output of her colostomy site has decreased. Chief complaint states abdominal pain however on further questioning sensory suprapubic pain with dysuria. PFSH Past Medical History Diabetes: Yes Patient Takes Glucophage: Yes Diminished Hearing: No Gastrointestinal Disorders: Yes (GASTROPORESIS) Hypertension: Yes Neurologic: Yes (NEUROPATHY) Reproductive: No Respiratory: No ?: Unknown Menopausal: Yes Past Surgical History Section: Yes (X3) Other Surgery: Yes (COLOSTOMY, RT HIP TUMOR REMOVED, 3 c-sections) Social History Alcohol Use: No Tobacco Use: Yes (1PPD) Substance Use: No Allergies-Medications (Allergen,Severity, Reaction): Coded Allergies: Robaxin (Verified Allergy, Unknown, 07/31/16) Reported Meds & Prescriptions Reported Meds & Active Scripts Active Macrobid (Nitrofurantoin Monoh/Nitrofur Macro) 100 Mg Cap 100 Mg PO BID Acetaminophen Extra Strength (Acetaminophen) 500 Mg Tab 500 Mg PO Q6H PRN Zofran Odt (Ondansetron Odt) 4 Mg Tab 4 Mg SL Q8HR PRN Protonix (Pantoprazole Sodium) 40 Mg Tab 40 Mg PO DAILY Carafate (Sucralfate) 1 Gm Tab 1 Gm PO QID Polyethylene Glycol 3350 Powder (Polyethylene Glycol) 17 Gm Pow 17 Gm PO DAILY 30 Days Metoclopramide (Metoclopramide HCl) 10 Mg Tab 10 Mg PO QID Lisinopril 20 Mg Tab 20 Mg PO DAILY Urecholine (Bethanechol Chloride) 25 Mg Tab 25 Mg PO QID Reported Metformin (Metformin HCl) 500 Mg Tab 500 Mg PO BIDPC With meals Butalbital-Acetaminophen 50-325 Mg Tab 1-2 Tab PO Q4HR PRN Do not exceed 6 tablets per day. Tamsulosin (Tamsulosin HCl) 0.4 Mg Cap 0.4 Mg PO HS Review of Systems Except as stated in HPI: all other systems reviewed are Neg General / Constitutional: No: Fever, Chills HENT: No: Vertigo, Lightheadedness Cardiovascular: No: Chest Pain or Discomfort, Palpitations Respiratory: No: Cough, Shortness of Breath Gastrointestinal: Positive: Changes in Bowel Habits (she reports decreased output of colostomy site), No: Nausea, Vomiting, Abdominal Pain Genitourinary: Positive: Frequency, Dysuria, No: Discharge, Vaginal Bleeding Musculoskeletal: Positive: Pain (right flank), No: Weakness Neurologic: No: Weakness, Dizziness Physical Exam Narrative GENERAL: Well-nourished, well-developed patient. SKIN: Warm and dry. HEAD: Normocephalic/atraumatic. EYES: No scleral icterus. No injection or drainage. NECK: Supple, trachea midline. CARDIOVASCULAR: Regular rate and rhythm without murmurs, gallops, or rubs. RESPIRATORY: Breath sounds equal bilaterally. No accessory muscle use. GASTROINTESTINAL: Abdomen soft, nondistended. On examination his patient's ostomy site, there is stool noted in the bag. There is no rebound or guarding. She has subjective suprapubic pain but states it hurts only when she urinates. MUSCULOSKELETAL: No cyanosis, or edema. BACK: No true CVA tenderness. NEUROLOGICAL: Awake and alert. Cranial nerves II through XII intact. Motor grossly within normal limits. Five out of 5 muscle strength in all muscle groups. Normal speech. Data Data Last Documented VS Vital Signs Date Time Temp Pulse Resp B/P Pulse Ox O2 Delivery O2 Flow Rate FiO2 07/31/16 13:00 78 16 139/72 99 Room Air 07/31/16 09:34 98.6 Orders Complete Blood Count With Diff (07/31/16 09:39) Comprehensive Metabolic Panel (07/31/16 09:39) Urinalysis - C+S If Indicated (07/31/16 09:39) Iv Access Insert/Monitor (07/31/16 09:39) Ecg Monitoring (07/31/16 09:39) Oximetry (07/31/16 09:39) Morphine Inj (Morphine Inj) (07/31/16 09:45) Ondansetron Inj (Zofran Inj) (07/31/16 09:45) Sodium Chlor 0.9% 1000 Ml Inj (Ns 1000 M (07/31/16 09:39) Sodium Chloride 0.9% Flush (Ns Flush) (07/31/16 09:45) Gastrografin Enema (07/31/16 ) Morphine Inj (Morphine Inj) (07/31/16 11:15) Diatrizoate Liq (Md Duggan Liq) (07/31/16 13:19) Labs Laboratory Tests Test 07/31/16 09:45 White Blood Count 10.4 TH/MM3 Red Blood Count 3.92 MIL/MM3 Hemoglobin 11.5 GM/DL Hematocrit 32.0 % Mean Corpuscular Volume 81.7 FL Mean Corpuscular Hemoglobin 29.5 PG Mean Corpuscular Hemoglobin 36.1 % Concent Red Cell Distribution Width 14.2 % Platelet Count 391 TH/MM3 Mean Platelet Volume 7.0 FL Neutrophils (%) (Auto) 79.0 % Lymphocytes (%) (Auto) 16.5 % Monocytes (%) (Auto) 3.3 % Eosinophils (%) (Auto) 0.5 % Basophils (%) (Auto) 0.7 % Neutrophils # (Auto) 8.2 TH/MM3 Lymphocytes # (Auto) 1.7 TH/MM3 Monocytes # (Auto) 0.3 TH/MM3 Eosinophils # (Auto) 0.1 TH/MM3 Basophils # (Auto) 0.1 TH/MM3 CBC Comment AUTO DIFF Differential Total Cells 100 Counted Neutrophils % (Manual) 81 % Band Neutrophils % 1 % Lymphocytes % 14 % Monocytes % 2 % Eosinophils % 1 % Neutrophils # (Manual) 8.6 TH/MM3 Myelocytes 1 % Differential Comment FINAL DIFF MANUAL Platelet Estimate NORMAL Platelet Morphology Comment NORMAL Sodium Level 135 MEQ/L Potassium Level 4.2 MEQ/L Chloride Level 101 MEQ/L Carbon Dioxide Level 27.2 MEQ/L Anion Gap 7 MEQ/L Blood Urea Nitrogen 18 MG/DL Creatinine 1.16 MG/DL Estimat Glomerular Filtration 50 ML/MIN Rate Random Glucose 248 MG/DL Calcium Level 8.7 MG/DL Total Bilirubin 0.2 MG/DL Aspartate Amino Transf 10 U/L (AST/SGOT) Alanine Aminotransferase 13 U/L (ALT/SGPT) Alkaline Phosphatase 68 U/L Total Protein 5.9 GM/DL Albumin 2.2 GM/DL [facility] Medical Decision Making Medical Screen Exam Complete: Yes Emergency Medical Condition: Yes Differential Diagnosis Cystitis versus pyelonephritis versus kidney stone versus bowel obstruction Narrative Course 50-year-old female presents with complaints of dysuria and right flank pain. Patient also reports decreased output from her ostomy site. Patient had a UTI with her last visit however reports that she was not given antibiotics. She'll be given a prescription for Macrobid 100 mg twice daily 7 days. She had a Gastrografin enema through her ostomy site and when she returned back from radiology, she had a large output from her ostomy site. She states she feels much improved and wishes to go home. She'll be given a prescription for Macrobid and told to follow up with her primary care physician. Diagnosis Primary Impression: Cystitis Additional Impressions: Gastroparesis History of colostomy Abdominal pain, unspecified site Renal insufficiency Type 2 diabetes mellitus Patient Instructions: Narcotic given in the ED Med/Other Pt SpecificInfo: Prescription(s) given Scripts Nitrofurantoin Monohydrate Macrocrystals (Macrobid)100 Mg Qyx144 Mg PO BID #14 CAP Ref 0 Prov:Orlando Romeo MD 07/31/16 Disposition: 01 DISCHARGE HOME Condition: Stable Orlando Romeo MD Jul 31, 2016 10:02
[2016-07-31 10:16] LABS: AUTOMATED NEUTROPHIL # 8.2 TH/MM3 (1.8-7.7); BASOPHIL # 0.1 TH/MM3 (0-0.2); BASOPHIL % 0.7 % (0.0-2.0); EOSINOPHIL # 0.1 TH/MM3 (0-0.4); EOSINOPHIL % 0.5 % (0.0-4.0); LYMPH % 16.5 % (9.0-44.0); LYMPHOCYTE # 1.7 TH/MM3 (1.0-4.8); MEAN CELL VOLUME 81.7 FL (80.0-100.0); MEAN CORPUSCULAR HEMOGLOBIN 29.5 PG (27.0-34.0); MONO % 3.3 % (0.0-8.0); PLATELET COUNT 391 TH/MM3 (150-450); RED BLOOD COUNT 3.92 MIL/MM3 (4.00-5.30); RED CELL DISTRIBUTION WIDTH 14.2 % (11.6-17.2); WHITE BLOOD COUNT 10.4 TH/MM3 (4.0-11.0)
[2016-07-31 10:17] LABS: HEMO FLAGS AUTO DIFF
[2016-07-31 10:32] LABS: ALT (GPT) 13 U/L (10-53); ANION GAP 7 MEQ/L (5-15); AST (GOT) 10 U/L (15-37); BICARBONATE 27.2 MEQ/L (21.0-32.0); BLOOD UREA NITROGEN 18 MG/DL (7-18); CHLORIDE 101 MEQ/L (98-107); GLOMERULAR FILTRATION RATE 50 ML/MIN (>89); POTASSIUM 4.2 MEQ/L (3.5-5.1); SODIUM (NA) 135 MEQ/L (136-145)
[2016-07-31 10:34] LABS: ALKALINE PHOSPHATASE 68 U/L (45-117); TOTAL BILIRUBIN ADULT 0.2 MG/DL (0.2-1.0)
[2016-07-31 10:58] LABS: BANDS 1 % (0-6); EOSINOPHILS 1 % (0-4); MYELOCYTES 1 % (0-0); NEUTROPHIL # MANUAL DIFF 8.6 TH/MM3 (1.8-7.7); PLATELET ESTIMATE SMEAR NORMAL (NORMAL); PLATELET MORPHOLOGY NORMAL (NORMAL); POLYS (SEG NEUTROPHILS) 81 % (16-70); SCAN/DIFF FINAL DIFF MANUAL; WBC DIFF SAMPLE 100
[2016-07-31] MEDS ORDERED: MORPHINE SULFATE 4 MG/ML INJ IV ONE (11:15)
--- NOTE | 2016-07-31 12:48 | RADRPT ---
EXAM DATE/TIME: 07/31/2016 10:54 [facility] COMPARISON: No previous studies available for comparison. INDICATIONS : Evaluate for obstruction FLUORO TIME: .6 minutes IMAGE COUNT: 6 CONTRAST: 1. Gastroview MEDICAL HISTORY : Gastroparesis. Hypertension. Diabetes mellitus type 2. SURGICAL HISTORY : Colostomy. section. ENCOUNTER: Initial ACUITY: 3 days PAIN SCORE: 7/10 LOCATION: All quadrants FINDINGS: Preliminary film is unremarkable. Under fluoroscopic guidance a Gastrografin enema was performed through the patient's stoma to exclude obstruction. Contrast was seen to flow freely through the stoma into the adjacent large bowel. The a djacent large bowel demonstrates normal caliber without evidence of dilation or stenosis. . CONCLUSION: Modified limited Gastrografin enema performed through the patient's stoma demonstrating no evidence o f obstruction. Cass Sherman MD on July 31, 2016 at 12:44 Board Certified Radiologist. This report was verified electronically.
[2016-07-31 13:00] VITALS: BP 139/72; PULSE 78; RESP 16; O2SAT 99
[2016-07-31] MEDS ORDERED: MACR100C2 PO (13:09)
[2016-07-31] MEDS ORDERED: DIATRIZOATE MEGLUM/DIATRIZOATE SOD 120 ML BTL (for RAD DIAG) RECTAL ONE (13:19)
[2016-07-31 13:32] LABS: BLOOD, URINE SMALL (NEG); COMMENT (UR) CULTURE INDICATED; CULTURE IF INDICATED CULTURE INDICATED; GLUCOSE,URINE 300 mg/dL (NEG); KETONE, URINE NEG (NEG); NITRITE,URINE NEG (NEG); SQUAMOUS EPITHELIAL CELL URINE 1 /hpf (0-5); URINE COLOR LIGHT-YELLOW (YELLW/STRAW)
[2016-07-31 15:00] VITALS: BP 153/70
== END 2016-07-31 15:17 | disposition home or self-care (01) ==
LOC: NEPC 09:23
DX: N30.90 Cystitis, unspecified without hematuria (principal); K31.84 Gastroparesis; E11.9 Type 2 diabetes mellitus without complications; I10 Essential (primary) hypertension; F17.210 Nicotine dependence, cigarettes, uncomplicated; R10.9 Unspecified abdominal pain; N28.9 Disorder of kidney and ureter, unspecified; Z93.3 Colostomy status
CPT/HCPCS: 74270; 80053; 81001; 85007; 85027; 87086; 96374; 96375; 96376; 99283; J2270; J2405; J7030; Q9963

== ENCOUNTER 2016-08-17 19:56 | Emergency (ER) | payer MEDICAID ==
[~2016-08-17] VITALS: Ht 162.6 cm; Wt 68.2 kg
[~2016-08-17 19:56] MED LIST changes: +MACR100C2 PO
[2016-08-17 20:05] VITALS: BP 117/71; PULSE 91; RESP 18; TEMP 98.2; O2SAT 100
[2016-08-17 20:10] VITALS: BP 117/71; PULSE 91; RESP 18; O2SAT 100
[2016-08-17] MEDS ORDERED: SODIUM CHLOR 0.9% 1000 ML INJ 1,000 ML IV SCH (20:12)
[2016-08-17] MEDS ORDERED: SODIUM CHLORIDE 0.9% FLUSH 10 ML FLUSH IV FLUSH PRN (20:15)
[2016-08-17] MEDS ORDERED: MORPHINE SULFATE 4 MG/ML INJ IV PUSH ONE (20:15)
--- NOTE | 2016-08-17 20:17 | PD ---
HPI Chief Complaint: Flank/Kidney Pain Time Seen by Provider: 20:08 Travel History International Travel<30 days: No Contact w/Intl Traveler<30days: No Traveled to known affect area: No History of Present Illness HPI 51-year-old female with history of colostomy 3 years ago, here for evaluation of right-sided flank pain that radiates to her right abdomen. Patient reports that the symptoms started yesterday and had been intermittent, sharp/dull, slightly worse with movements. The patient reports that she was at a facility in [facility] yesterday for the same. Chart review shows that the patient has been here 4 times in the last month for similar complaints and had to CT abdomen pelvis, both of which showed no significant intra-abdominal pathology. Patient denies fevers or chills. No nausea or vomiting. No urinary symptoms. Her most recent visit was on 07/31/16, and during that time she was diagnosed with a UTI and was discharged home with [facility]. PFSH Past Medical History Diabetes: Yes Diminished Hearing: No Gastrointestinal Disorders: Yes (GASTROPORESIS) Hypertension: Yes Neurologic: Yes (NEUROPATHY) Reproductive: No Respiratory: No ?: Not Menopausal: Yes Past Surgical History Section: Yes (X3) Other Surgery: Yes (COLOSTOMY, RT HIP TUMOR REMOVED, 3 c-sections) Social History Alcohol Use: No Tobacco Use: Yes Substance Use: No Allergies-Medications (Allergen,Severity, Reaction): Coded Allergies: Robaxin (Verified Allergy, Unknown, 08/17/16) Reported Meds & Prescriptions Reported Meds & Active Scripts Active Macrobid (Nitrofurantoin Monoh/Nitrofur Macro) 100 Mg Cap 100 Mg PO BID Acetaminophen Extra Strength (Acetaminophen) 500 Mg Tab 500 Mg PO Q6H PRN Zofran Odt (Ondansetron Odt) 4 Mg Tab 4 Mg SL Q8HR PRN Protonix (Pantoprazole Sodium) 40 Mg Tab 40 Mg PO DAILY Carafate (Sucralfate) 1 Gm Tab 1 Gm PO QID Polyethylene Glycol 3350 Powder (Polyethylene Glycol) 17 Gm Pow 17 Gm PO DAILY 30 Days Metoclopramide (Metoclopramide HCl) 10 Mg Tab 10 Mg PO QID Lisinopril 20 Mg Tab 20 Mg PO DAILY Urecholine (Bethanechol Chloride) 25 Mg Tab 25 Mg PO QID Reported Metformin (Metformin HCl) 500 Mg Tab 500 Mg PO BIDPC With meals Butalbital-Acetaminophen 50-325 Mg Tab 1-2 Tab PO Q4HR PRN Do not exceed 6 tablets per day. Tamsulosin (Tamsulosin HCl) 0.4 Mg Cap 0.4 Mg PO HS Review of Systems Except as stated in HPI: all other systems reviewed are Neg Physical Exam Narrative GENERAL: Well-developed, well-nourished, comfortable, no acute distress. SKIN: Focused skin assessment warm/dry. Rash. HEAD: Atraumatic. Normocephalic. EYES: Pupils equal and round. No scleral icterus. No injection or drainage. ENT: Mucous membranes pink and moist. NECK: Trachea midline. No JVD. No nuchal rigidity. CARDIOVASCULAR: Regular rate and rhythm. No murmur appreciated. RESPIRATORY: No accessory muscle use. Clear to auscultation. Breath sounds equal bilaterally. GASTROINTESTINAL: Abdomen soft, non-tender, nondistended. Left upper quadrant colostomy with brown stool output, site clean, dry, intact. Normal bowel sounds. MUSCULOSKELETAL: No obvious deformities. No clubbing. No cyanosis. No edema. No midline vertebral step-off or tenderness. Mild right CVA tenderness. No left CVA tenderness. NEUROLOGICAL: Awake and alert. No obvious cranial nerve deficits. Motor grossly within normal limits. Normal speech. PSYCHIATRIC: Appropriate mood and affect; insight and judgment normal. Data Data Last Documented VS Vital Signs Date Time Temp Pulse Resp B/P Pulse Ox O2 Delivery O2 Flow Rate FiO2 08/17/16 20:24 99 Room Air 08/17/16 20:10 91 18 117/71 08/17/16 20:05 98.2 Orders Beta Hcg (Quant/Titer) (08/17/16 20:12) Complete Blood Count With Diff (08/17/16 20:12) Comprehensive Metabolic Panel (08/17/16 20:12) Lipase (08/17/16 20:12) Prothrombin Time / Inr (Pt) (08/17/16 20:12) Act Partial Throm Time (Ptt) (08/17/16 20:12) Urinalysis - C+S If Indicated (08/17/16 20:12) Iv Access Insert/Monitor (08/17/16 20:12) Ecg Monitoring (08/17/16 20:12) Oximetry (08/17/16 20:12) Morphine Inj (Morphine Inj) (08/17/16 20:15) Sodium Chlor 0.9% 1000 Ml Inj (Ns 1000 M (08/17/16 20:12) Sodium Chloride 0.9% Flush (Ns Flush) (08/17/16 20:15) Abdomen, Kub Only (08/17/16 ) Ct Abd/Pel W/O Iv Contrast (08/17/16 ) Labs Laboratory Tests Test 08/17/16 08/17/16 20:23 20:30 White Blood Count 13.2 TH/MM3 Red Blood Count 3.88 MIL/MM3 Hemoglobin 11.5 GM/DL Hematocrit 32.1 % Mean Corpuscular Volume 82.8 FL Mean Corpuscular Hemoglobin 29.6 PG Mean Corpuscular Hemoglobin 35.7 % Concent Red Cell Distribution Width 14.2 % Platelet Count 506 TH/MM3 Mean Platelet Volume 6.4 FL Neutrophils (%) (Auto) % Lymphocytes (%) (Auto) % Monocytes (%) (Auto) % Eosinophils (%) (Auto) % Basophils (%) (Auto) % Neutrophils # (Auto) TH/MM3 Lymphocytes # (Auto) TH/MM3 Monocytes # (Auto) TH/MM3 Eosinophils # (Auto) TH/MM3 Basophils # (Auto) TH/MM3 CBC Comment AUTO DIFF Differential Total Cells 100 Counted Neutrophils % (Manual) 69 % Lymphocytes % 23 % Monocytes % 6 % Eosinophils % 2 % Neutrophils # (Manual) 9.1 TH/MM3 Differential Comment FINAL DIFF MANUAL Platelet Estimate HIGH Platelet Morphology Comment NORMAL Red Cell Morphology Comment NORMAL Prothrombin Time 11.0 SEC Prothromb Time International 1.0 RATIO Ratio Activated Partial 28.7 SEC Thromboplast Time Sodium Level 134 MEQ/L Potassium Level 3.8 MEQ/L Chloride Level 100 MEQ/L Carbon Dioxide Level 25.4 MEQ/L Anion Gap 9 MEQ/L Blood Urea Nitrogen 31 MG/DL Creatinine 1.31 MG/DL Estimat Glomerular Filtration 43 ML/MIN Rate Random Glucose 107 MG/DL Calcium Level 9.3 MG/DL Total Bilirubin 0.2 MG/DL Aspartate Amino Transf 10 U/L (AST/SGOT) Alanine Aminotransferase 12 U/L (ALT/SGPT) Alkaline Phosphatase 71 U/L Total Protein 6.1 GM/DL Albumin 2.2 GM/DL Lipase 211 U/L Human Chorionic Gonadotropin, LESS THAN 1 Quant MIU/ML Urine Color YELLOW Urine Turbidity CLEAR Urine pH 6.5 Urine Specific Ajo 1.015 Urine Protein 300 mg/dL Urine Glucose (UA) 300 mg/dL Urine Ketones NEG mg/dL Urine Occult Blood TRACE Urine Nitrite NEG Urine Bilirubin NEG Urine Urobilinogen LESS THAN 2.0 MG/DL Urine Leukocyte Esterase NEG Urine RBC 1 /hpf Urine WBC 2 /hpf Urine Squamous Epithelial 3 /hpf Cells Urine Hyaline Casts 2 /lpf Microscopic Urinalysis Comment CULT NOT INDICATED MDM Medical Decision Making Medical Screen Exam Complete: Yes Emergency Medical Condition: Yes Differential Diagnosis Pyelonephritis, nephrolithiasis, UTI, ureterolithiasis, dissection unlikely, AAA unlikely, musculoskeletal pain, diverticulitis, colitis, hepatobiliary disease Narrative Course Vital signs reviewed. CBC shows WBC 13.2, hemoglobin 11.5, hematocrit 32.1, platelets 506 CMP is remarkable for BUN 31, creatinine 1.31, GFR 43 which is slightly worse than her baseline, otherwise unremarkable. Lipase is 211. Beta hCG is less than 1. UA shows trace occult blood, 300 glucose, 300 protein, not suggestive of UTI. CT abdomen pelvis: CONCLUSION: 1. The kidneys remain unremarkable in appearance with no renal calculi or obstruction. 2. The remainder of this noncontrast exam is unremarkable Patient was made aware of all findings. She was given a dose of pain medication and is resting comfortably. At this point I believe she can be further worked up as an outpatient with her primary care physician this week. She is stable for discharge home with outpatient follow-up. She was informed on when to return to the emergency department. She verbalizes understanding and agreement with plan. Diagnosis Primary Impression: Right flank pain Additional Impressions: Hematuria Proteinuria Qualified Code: R80.9 - Proteinuria, unspecified type Referrals: Primary Care Physician 3 days Additional Instructions: Follow-up with your primary care physician this week. Return to the emergency department for worsening symptoms or any other concerns. Disposition: 01 DISCHARGE HOME Condition: Stable Bala Sanchez MD Aug 17, 2016 20:17
[2016-08-17 20:24] VITALS: O2SAT 99
[2016-08-17 20:41] LABS: HEMATOCRIT 32.1 % (35.0-46.0); MEAN CELL VOLUME 82.8 FL (80.0-100.0); MEAN CORPUSCULAR HEMOGLOBIN 29.6 PG (27.0-34.0); MEAN CORPUSCULAR HGB CONC 35.7 % (32.0-36.0); PLATELET COUNT 506 TH/MM3 (150-450); RED BLOOD COUNT 3.88 MIL/MM3 (4.00-5.30); RED CELL DISTRIBUTION WIDTH 14.2 % (11.6-17.2); WHITE BLOOD COUNT 13.2 TH/MM3 (4.0-11.0)
[2016-08-17 20:50] LABS: HEMO FLAGS AUTO DIFF
[2016-08-17 20:52] LABS: APTT (PATIENT) 28.7 SEC (24.3-30.1)
[2016-08-17 21:05] LABS: ANION GAP 9 MEQ/L (5-15)
[2016-08-17 21:10] LABS: ALKALINE PHOSPHATASE 71 U/L (45-117); ALT (GPT) 12 U/L (10-53); AST (GOT) 10 U/L (15-37); BETA HCG QUANT LESS THAN 1 MIU/ML (0-5); BICARBONATE 25.4 MEQ/L (21.0-32.0); BLOOD UREA NITROGEN 31 MG/DL (7-18); CHLORIDE 100 MEQ/L (98-107); GLOMERULAR FILTRATION RATE 43 ML/MIN (>89); SODIUM (NA) 134 MEQ/L (136-145); TOTAL BILIRUBIN ADULT 0.2 MG/DL (0.2-1.0)
[2016-08-17 21:11] LABS: POTASSIUM 3.8 MEQ/L (3.5-5.1)
[2016-08-17 21:15] LABS: EOSINOPHILS 2 % (0-4); NEUTROPHIL # MANUAL DIFF 9.1 TH/MM3 (1.8-7.7); PLATELET ESTIMATE SMEAR HIGH (NORMAL); PLATELET MORPHOLOGY NORMAL (NORMAL); POLYS (SEG NEUTROPHILS) 69 % (16-70); SCAN/DIFF FINAL DIFF MANUAL; WBC DIFF SAMPLE 100
--- NOTE | 2016-08-17 21:22 | RADRPT ---
EXAM DATE/TIME: 08/17/2016 20:23 [facility] COMPARISON: CT ABDOMEN & PELVIS W CONTRAST, July 29, 2016, 23:03. INDICATIONS : Right flank pain. MEDICAL HISTORY : None. SURGICAL HISTORY : None. ENCOUNTER: Initial ACUITY: 1 day PAIN SCORE: 2/10 LOCATION: Right abdomen FINDINGS: Supine view of the abdomen was performed. The abdominal bowel gas pattern is normal. No abnormal ma sses, calcifications, or organomegaly is seen. There are multiple calcified phleboliths in the pelvi s. The osseous structures are unremarkable. CONCLUSION: Unremarkable exam no renal or ureteral calculi. Merrill Concepcion MD on August 17, 2016 at 21:19 Board Certified Radiologist. This report was verified electronically.
[2016-08-17 21:28] LABS: BLOOD, URINE TRACE (NEG); COMMENT (UR) CULT NOT INDICATED; CULTURE IF INDICATED CULT NOT INDICATED; GLUCOSE,URINE 300 mg/dL (NEG); HYALINE CAST, URINE 2 /lpf (RARE); KETONE, URINE NEG (NEG); NITRITE,URINE NEG (NEG); PH, URINE 6.5 (5.0-8.5); SQUAMOUS EPITHELIAL CELL URINE 3 /hpf (0-5); URINE COLOR YELLOW (YELLW/STRAW)
--- NOTE | 2016-08-17 22:26 | RADRPT ---
EXAM DATE/TIME: 08/17/2016 22:11 [facility] COMPARISON: CT ABDOMEN & PELVIS W/O CONTRAST, July 17, 2016, 20:16. INDICATIONS : Bilateral flank pain for two days. ORAL CONTRAST: No oral contrast ingested. RADIATION DOSE: 5.24 CTDIvol (mGy) MEDICAL HISTORY : Hypertension. Gastroparesis. Diabetes. SURGICAL HISTORY : section. ENCOUNTER: Initial ACUITY: 2 days PAIN SCALE: 7/10 LOCATION: Bilateral flank TECHNIQUE: Volumetric scanning of the abdomen and pelvis was performed. Using automated exposure control and ad justment of the mA and/or kV according to patient size, radiation dose was kept as low as reasonably achievable to obtain optimal diagnostic quality images. FINDINGS: LOWER LUNGS: The visualized lower lungs are clear. LIVER: Homogeneous density without lesion. There is no dilation of the biliary tree. No calcified gallston es. SPLEEN: Normal size without lesion. PANCREAS: Within normal limits. KIDNEYS: Normal in size and shape. There is no mass, stone, or hydronephrosis. ADRENAL GLANDS: Within normal limits. VASCULAR: There is no aortic aneurysm. BOWEL/MESENTERY: The stomach, small bowel, and colon demonstrate no acute abnormality. There is no free intraperitone al air or fluid. ABDOMINAL WALL: Within normal limits. RETROPERITONEUM: There is no lymphadenopathy. BLADDER: No wall thickening or mass. REPRODUCTIVE: Within normal limits. INGUINAL: There is no lymphadenopathy or hernia. MUSCULOSKELETAL: Within normal limits for patient age. CONCLUSION: 1. The kidneys remain unremarkable in appearance with no renal calculi or obstruction. 2. The remainder of this noncontrast exam is unremarkable Merrill Concepcion MD on August 17, 2016 at 22:21 Board Certified Radiologist. This report was verified electronically.
[2016-08-17 22:59] VITALS: BP 115/70; PULSE 87; RESP 16; O2SAT 99
== END 2016-08-17 23:20 | disposition home or self-care (01) ==
LOC: NEPD 19:56
DX: R10.9 Unspecified abdominal pain (principal); R31.9 Hematuria, unspecified; R80.9 Proteinuria, unspecified; E11.9 Type 2 diabetes mellitus without complications; I10 Essential (primary) hypertension; Z72.0 Tobacco use
CPT/HCPCS: 74000; 74176; 80053; 81001; 83690; 84702; 85007; 85027; 85610; 85730; 96374; 99284; J2270; J7030